=== PATIENT | male | born 1940 | race Caucasian/White ===

== ENCOUNTER 2020-01-12 11:45 | Emergency (ER) | payer MEDICARE, SELFPAY ==
[2020-01-12 11:49] VITALS: BMI 30.4
[2020-01-12 11:56] VITALS: BP 127/76; PULSE 92; RESP 18; TEMP 36.9; O2SAT 95
--- NOTE | 2020-01-12 12:01 | XRR_ITS ---
PROCEDURE INFORMATION: Exam: XR Chest, 1 View Exam date and time: 01/12/2020 12:29 PM Age: 79 years old Clinical indication: Chest pain; Type not specified; Additional info: Chest pain, back pain TECHNIQUE: Imaging protocol: XR of the chest Views: 1 view. COMPARISON: No relevant prior studies available. FINDINGS: Tubes, catheters and devices: There is a central line in place on the right side extending into the SVC Lungs: Unremarkable. No consolidation. There is a 9.7 mm circumscribed granuloma right lower lobe. A linear fibrotic density is seen in the right lower lobe. these are nonspecific findings. Pleural space: Unremarkable. No pleural effusion. No pneumothorax. Heart/Mediastinum: Unremarkable. No cardiomegaly. Bones/joints: Unremarkable. XR/XR chest 1V portable [id number] IMPRESSION: 1. No acute findings. 2. Right central line in good position. 3. Right lower lobe granuloma 4. Right lower lobe pulmonary fibrosis
--- NOTE | 2020-01-12 12:01 | ECG_ITS ---
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 Measurements Intervals [place] Rate: 87 P: 0 MD: 166 QRS: -5 QRSD: 95 T: 67 QT: 341 QTc: 411 Interpretive Statements SINUS RHYTHM NONSPECIFIC T-WAVE ABNORMALITY No previous ECG available for comparison Electronically Signed On 01-12-2020 20:32:28 CDT by Norm Shore M.D. [id number]
--- NOTE | 2020-01-12 12:03 | W.ED.GENADLT ---
HPI - General Adult General: Chief complaint: General Medical Stated complaint: rotater cuff pain Time Seen by Provider: 01/12/20 11:49 History of Present Illness: HPI narrative: This patient is a 79-year-old male presenting with right shoulder pain for several months and then intermittent chest and back pain for the last month or so. He recently moved here and does not have a physician. He says the shoulder pain started when he lifted something that was too heavy and immediately had pain in the anterior portion of his shoulder. That pain continues and is fairly constant but worsens with certain positions or movements of his arm. At times he has tingling of the fourth and fifth finger but does not think he has any weakness in the arm. He started having some pain in the left shoulder and also is having intermittent pain across his chest and across his back. He denies shortness of breath but appears dyspneic on exam. 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 He says he is in remission. His last chemotherapy was about 3 months ago. He has a port. He says he has a history of diabetes but does not take anything for it. He also has history of high blood pressure and high cholesterol. He says he has 3 crushed vertebrae in his upper neck. He denies bladder or bowel dysfunction but notes that for a long time he has had frequency where he has to urinate about every hour and it is only a small amount. No blood in the urine or stool. Onset (ago): month(s) (2) Location: chest, back, left, right and upper extremity Radiation: back and neck Severity: severe Severity scale (1-10): 10 Quality: sharp Pain Consistency: intermittent Associated symptoms: Reports chest pain; Deny dyspnea, headache(s), malaise, nausea, rash or vomiting Review of Systems General: Reports: 10 or more systems reviewed and unremarkable except in HPI and below Const: Denies: fever(s), chills, fatigue or malaise Eyes: Denies: change in vision ENMT: Denies: odynophagia Card: Reports: chest pain; Denies: swelling of feet/ankles Resp: Denies: dyspnea, productive cough or non-productive cough GI: Denies: abdominal pain, nausea or vomiting : Reports: urinary frequency; Denies: flank pain Musc: Reports: neck pain and back pain Skin/Breast: Denies: rash Neuro: Reports: numbness in extremities (Fourth and fifth finger of the right hand, intermittent); Denies: headache(s) or weakness in extremities Sukhdev/Lymph: Denies: easy bruising or easy bleeding Physical Exam Const: COMMON NORMALS: no acute distress, patient oriented x3, no limitations and alert GENERAL APPEARANCE: cooperative and well kempt HENMT: HEAD & SCALP: normal to inspection FACE & SINUS: normal facial exam Eye: GENERAL EYE: appearance normal, both eyes and all related structures Neck/C-Spine: COMMON NORMALS: no meningeal signs and no JVD CERVICAL SPINE: Yes other (No tenderness of the C-spine but marked muscle tension and spasm of the right trapezius and paraspinal muscles on the right) Chest: COMMONS NORMALS: normal inspection of the chest Resp: COMMON NORMALS: normal respiratory effort and No use of accessory muscles AUSCULTATION: diminished lung sounds on the left in the lower lung valle Cardio: COMMON NORMALS: no JVD, regular rate, regular rhythm and No murmurs present (Cardio) RATE: regular rate RHYTHM: regular rhythm GI: COMMON NORMALS: Normal to inspection, nondistended, normoactive bowel sounds present, Soft to palpation and non-tender INSPECTION: Yes normal to inspection AUSCULTATION: Yes normoactive bowel sounds PALPATION: Yes Soft to palpation Back/Pelvis: COMMON NORMALS: thoracic and lumbar spine normal to inspection Extremity: RIGHT UPPER EXTREMITY: Yes shoulder joint Right shoulder: Yes Right shoulder joint inspection exam (No obvious deformity) and Yes Right shoulder joint ROM exam (Severely limited due to pain) Neuro: COMMON NORMALS: patient oriented x3, moves all extremities, no focal motor deficits and no sensory deficits noted SENSORIUM/ORIENTATION: Yes alert MENINGEAL SIGNS: Yes no meningeal signs Psych: COMMON NORMALS: mental status grossly normal, cooperative and normal affect APPEARANCE: Yes well kempt Skin: COMMON NORMALS: no rashes or lesions noted and turgor normal GENERAL SKIN EXAM: no rashes or lesions noted and turgor normal Course ED course: Try to get prior records on this patient without success. His daughter is an ICU nurse here and is in the process of getting him set up with all the specialists he will need for follow-up. I spoke with her, with the patient's permission, about his work-up and plans for follow-up. I did not find anything acute today and his pain is probably related both to his rotator cuff injury and to bony metastases throughout his thorax. Ortho referral was given. Vital Signs: Vital signs: Vital Signs Temperature 98.4 F 01/12/20 11:56 Pulse Rate 83 01/12/20 14:30 Respiratory Rate 18 01/12/20 14:30 Blood Pressure 170/87 01/12/20 14:30 Pulse Oximetry 96 01/12/20 14:30 [facility] - General Adult Lab Data: Labs: Lab Results 01/12/20 01/12/20 01/12/20 Range/Units 12:19 12:19 12:19 WBC 13.7 H (4.0-10.0) 10^3/ uL RBC 3.63 L (4.1-5.3) 10^6/u L Hgb 9.9 L (11.7-16.6) g/dL Hct 32.2 L (42.0-52.0) % MCV 88.7 (80-94) fL MCH 27.3 L (28.0-34.0) pg MCHC 30.7 (30.0-36.0) g/dL RDW 13.4 (12.1-15.1) % Plt Count 316 (130-400) 10^3/c mm MPV 9.6 (7.4-10.4) fL Neut % (Auto) 86.7 % Lymph % (Auto) 5.8 % Guthrie % (Auto) 5.6 % Eos % (Auto) 0.5 % Baso % (Auto) 0.3 % Neut # (Auto) 11.91 H (1.8-7.7) 10^3/u L Lymph # (Auto) 0.8 (0.8-4.8) 10^3/u L Guthrie # (Auto) 0.8 (0.2-0.9) 10^3/u L Eos # (Auto) 0.1 (0.0-0.8) 10^3/u L Baso # (Auto) 0.0 (0.0-0.1) 10^3/u L Nucleated RBC % (a uto) 0 % Nucleated RBCs # 0.0 /100WBC D-Dimer 3.70 H (0-0.59) ug/mIFE U Sodium 136 (136-145) mmol/L Potassium 3.5 (3.5-5.1) mmol/L Chloride 100 (98-107) mmol/L Carbon Dioxide 23 (22-29) mmol/L Anion Gap 16.5 (5-19) BUN 41 H (8-23) mg/dL Creatinine 1.2 (0.7-1.2) mg/dL GFR Calculation Not Reportable Glucose 154 H (65-115) mg/dL Calculated Osmolal ity 283 L (285-295) mOsm/k g Calcium 9.9 (8.5-10.5) mg/dL Total Bilirubin 0.3 (0.15-1.2) mg/dL AST 24 (0-40) U/L ALT 19 (0-41) U/L Alkaline Phosphata se 315 H (40-130) IU/L Troponin T Baselin e (0-15) ng/L Troponin T 120 Min afshan (0-15) ng/L Delta Troponin T (0-10) ABS# Total Protein 7.2 (6.6-8.7) g/dL Albumin 3.6 (3.5-5.2) g/dL Globulin 3.6 (1.3-4.6) g/dL Urine Color (Yellow) Urine Appearance (CLEAR) Urine pH (5-7) Ur Specific Gravit y (1.005-1.030) Urine Protein (Negative) Urine Glucose (UA) (Normal) Urine Ketones (Negative) Urine Blood (Negative) Urine Nitrate (Negative) Urine Bilirubin (NEGATIVE) Urine Urobilinogen (Negative) mg/dL Ur Leukocyte Lucille ase (Negative) 01/12/20 01/12/20 01/12/20 Range/Units 12:19 12:33 14:16 WBC (4.0-10.0) 10^3/ uL RBC (4.1-5.3) 10^6/u L Hgb (11.7-16.6) g/dL Hct (42.0-52.0) % MCV (80-94) fL MCH (28.0-34.0) pg MCHC (30.0-36.0) g/dL RDW (12.1-15.1) % Plt Count (130-400) 10^3/c mm MPV (7.4-10.4) fL Neut % (Auto) % Lymph % (Auto) % Guthrie % (Auto) % Eos % (Auto) % Baso % (Auto) % Neut # (Auto) (1.8-7.7) 10^3/u L Lymph # (Auto) (0.8-4.8) 10^3/u L Guthrie # (Auto) (0.2-0.9) 10^3/u L Eos # (Auto) (0.0-0.8) 10^3/u L Baso # (Auto) (0.0-0.1) 10^3/u L Nucleated RBC % (a uto) % Nucleated RBCs # /100WBC D-Dimer (0-0.59) ug/mIFE U Sodium (136-145) mmol/L Potassium (3.5-5.1) mmol/L Chloride (98-107) mmol/L Carbon Dioxide (22-29) mmol/L Anion Gap (5-19) BUN (8-23) mg/dL Creatinine (0.7-1.2) mg/dL GFR Calculation Glucose (65-115) mg/dL Calculated Osmolal ity (285-295) mOsm/k g Calcium (8.5-10.5) mg/dL Total Bilirubin (0.15-1.2) mg/dL AST (0-40) U/L ALT (0-41) U/L Alkaline Phosphata se (40-130) IU/L Troponin T Baselin e 19 H (0-15) ng/L Troponin T 120 Min afshan 12.85 (0-15) ng/L Delta Troponin T -6.15 L (0-10) ABS# Total Protein (6.6-8.7) g/dL Albumin (3.5-5.2) g/dL Globulin (1.3-4.6) g/dL Urine Color Yellow (Yellow) Urine Appearance Clear (CLEAR) Urine pH 5 (5-7) Ur Specific Gravit y 1.020 (1.005-1.030) Urine Protein Neg (Negative) Urine Glucose (UA) Norm (Normal) Urine Ketones Negative (Negative) Urine Blood Neg (Negative) Urine Nitrate Negative (Negative) Urine Bilirubin Neg (NEGATIVE) Urine Urobilinogen 1 H (Negative) mg/dL Ur Leukocyte Lucille ase Negative (Negative) EKG Data^: EKG 1: EKG interpretation date: 01/12/20 EKG interpretation time: 12:12 Interpretation: EKG shows sinus rhythm with a rate of 87. Normal intervals. Normal axis. Nonspecific T wave flattening which may be artifact. No acute ischemic changes. Computer generated interpretation: Chest X-Ray 01/12/20 12:01 IMPRESSION: 1. No acute findings. 2. Right central line in good position. 3. Right lower lobe granuloma 4. Right lower lobe pulmonary fibrosis Chest/Abdomen/Pelvis CT 01/12/20 12:56 IMPRESSION: 1. Suboptimal opacification of pulmonary arteries. Centrally and through the segmental branches no pulmonary embolism. 2. 3.2 cm RIGHT hepatic lesion suspicious for metastatic disease. 3. Mixed heterogeneity throughout the ribs and multiple vertebral bodies (thoracic and lumbar) suspicious for metastatic disease. 4. Very mild thickening of the bladder wall up to 14 mm. 5. Atherosclerosis aorta. 6. Sigmoid diverticulosis without acute diverticulitis. 7. Ventral abdominal wall hernia contains a partial loop of small bowel with no obstruction. 8. No ascites or adenopathy. Discharge Plan Discharge Patient Disposition: Home Clinical Impression: Bone metastasis, Muscle spasm of right shoulder Injury of right rotator cuff Qualifiers: Encounter type: initial encounter Qualified Code(s): S46.001A - Unspecified injury of muscle(s) and tendon(s) of the rotator cuff of right shoulder, initial encounter Condition: Stable Prescriptions: New hydrocodone-acetaminophen 5-325 mg tablet 1 tab PO Q6H PRN (Reason: pain) Qty: 30 RF: 0 tizanidine 4 mg capsule 4 mg PO Q8H PRN (Reason: muscle spasticity) Qty: 30 RF: 0 No Action fenofibrate 160 mg Tablet 160 mg PO DAILY RF: 0 hydrocodone-acetaminophen 5-325 mg Tablet 1 tab PO Q6H PRN (Reason: Pain) RF: 0 lisinopril-hydrochlorothiazide 10-12.5 mg Tablet 1 tab PO DAILY RF: 0 Discharge Orders: Discharge Order (Routine); Ordered 01/12/20 Ordered By: Maryjo Craig Referrals: Gabriel Martinez MD [Physician] - 2 weeks (right rotator cuff injury) Discharge Diet: Usual diet Discharge Activity: Resume usual activity Patient Instructions: Rotator Cuff Injury (ED) Activity Restrictions/Additional Instructions: You may use a sling for comfort, but take your arm out of the sling several times a day to do gentle range of motion exercises. Use the pain medicine and muscle relaxer only as needed and use caution as both can make you sleepy. Follow up wtih your PCP about an MR and orthopedic follow up. Return to the ED if new or worse symptoms. Discharge Date/Time: 01/12/20 15:21 Coding Level of Care Code ED House Decorator for Martin Fwd Exam Comprehensive
[2020-01-12 12:25] LABS: Basophils % 0.3 %; Eosinophils # 0.1 10^3/uL (0.0-0.8); Eosinophils % 0.5 %; Hematocrit 32.2 % (42.0-52.0); Hemoglobin 9.9 g/dL (11.7-16.6); Lymphocytes # 0.8 10^3/uL (0.8-4.8); Lymphocytes % 5.8 %; Mean Corpuscular HGB Conc 30.7 g/dL (30.0-36.0); Mean Corpuscular Hemoglobin 27.3 pg (28.0-34.0); Mean Corpuscular Volume 88.7 fL (80-94); Mean Platelet Volume 9.6 fL (7.4-10.4); Monocytes # 0.8 10^3/uL (0.2-0.9); Monocytes % 5.6 %; Neutrophils # 11.91 10^3/uL (1.8-7.7); Neutrophils % 86.7 %; Nucleated Red Blood Cells % 0 %; Platelet Count 316 10^3/cmm (130-400); Red Blood Count 3.63 10^6/uL (4.1-5.3); Red Cell Distribution Width 13.4 % (12.1-15.1); White Blood Count 13.7 10^3/uL (4.0-10.0)
[2020-01-12 12:35] LABS: Add Urine Microscopic? NO
[2020-01-12 12:37] VITALS: BP 135/67; PULSE 85; O2SAT 97
[2020-01-12 12:39] LABS: Bilirubin Urine Neg (NEGATIVE); Blood Urine Neg (Negative); Glucose Urine UA Norm (Normal); Ketones Urine Negative (Negative); Leukocyte Esterase Urine Negative (Negative); Nitrate Urine Negative (Negative); Protein Urine Neg (Negative); Urine Appearance Clear (CLEAR); Urine Color Yellow (Yellow); Urobilinogen Urine 1 mg/dL (Negative); pH Urine 5 (5-7)
[2020-01-12 12:45] LABS: Alanine Aminotransferase 19 U/L (0-41); Albumin Level 3.6 g/dL (3.5-5.2); Alkaline Phosphatase 315 IU/L (40-130); Anion Gap 16.5 (5-19); Aspartate Amino Transferase 24 U/L (0-40); Blood Urea Nitrogen 41 mg/dL (8-23); Calcium 9.9 mg/dL (8.5-10.5); Carbon Dioxide 23 mmol/L (22-29); Chloride 100 mmol/L (98-107); Globulin 3.6 g/dL (1.3-4.6); Glucose 154 mg/dL (65-115); Osmolality Calculated 283 mOsm/kg (285-295); Potassium 3.5 mmol/L (3.5-5.1); Sodium 136 mmol/L (136-145); Total Bilirubin 0.3 mg/dL (0.15-1.2); Total Protein 7.2 g/dL (6.6-8.7)
--- NOTE | 2020-01-12 12:56 | CT_ITS ---
WS: [id number] CTA CHEST WITH CT ABDOMEN AND PELVIS. HISTORY: Chest and back pain with history of cancer. TECHNIQUE: CT angiogram is performed through the chest. Additional imaging is performed through the a bdomen and pelvis with IV contrast. Sagittal and coronal reformats have been submitted. MIP imaging also reviewed. All CT scans at [facility] use at least one of these dose optimization tech niques: automated exposure control; mA and/or kV adjustment per patient size (includes targeted exams where dose is matched to clinical indication); or iterative reconstruction. Contrast: Visipaque 160 cc IV. DLP: 2836.8 mGy.cm COMPARISON: None. Chest CTA: Limited opacification of the pulmonary arteries. There is significant artifact through the thorax is just probably due to patient's arms. No large central defects. Beyond the segmental branch es the opacification is limited. Heart size is slightly enlarged. No pericardial pleural effusions. A therosclerosis aorta is mild. Pulmonary artery is not enlarged. Benign granuloma RIGHT middle lobe. N o pneumonia. Subsegmental atelectasis at the lung bases. Port-A-Cath present with tip in distal SVC. Variable density throughout the bones of the thorax inclu ding the spine and ribs. There are areas of sclerosis and lucency which are highly suspicious for met astatic bone disease. Multiple areas of involvement. Abdomen CT: Ill-defined hypodense nodule in the superior liver just beneath the dome measures 3.2 cm. No edema additional masses are identified. No bile duct dilatation. Splenic granulomata. Normal gall bladder. Normal pancreas. No adrenal mass. Atherosclerosis aorta with no aneurysm. No renal obstructi on. RIGHT renal cyst measures 11 mm. No solid masses are identified. Ventral abdominal wall hernia with an orifice of 2.2 cm. There is a loop of small bowel at the orific e with no obstruction. No GI tract obstruction. The appendix is partially visualized and appears normal. Sigmoid diverticula r disease without acute diverticulitis. No abscess or free fluid. No adenopathy. Pelvic CT: Minimally distended urinary bladder. There is mild bladder wall thickening. Thickening of the bladder wall measuring up to 14 mm along the dome. No adenopathy. Heterogeneity throughout the lumbar spine suspicious for metastatic disease. L4 anterolisthesis by 7 mm. No compression fractures. CT/CT angio chest w abd pel w con IMPRESSION: 1. Suboptimal opacification of pulmonary arteries. Centrally and through the s egmental branches no pulmonary embolism. 2. 3.2 cm RIGHT hepatic lesion suspicious for metastatic disease. 3. Mixed heterogeneity throughout the ribs and multiple vertebral bodies (thor acic and lumbar) suspicious for metastatic disease. 4. Very mild thickening of the bladder wall up to 14 mm. 5. Atherosclerosis aorta. 6. Sigmoid diverticulosis without acute diverticulitis. 7. Ventral abdominal wall hernia contains a partial loop of small bowel with n o obstruction. 8. No ascites or adenopathy.
[2020-01-12 13:00] VITALS: BP 112/74; PULSE 82; O2SAT 96
[2020-01-12] MEDS: iodixanol 320 mg/mL 100mL Btl IV ×2 (13:30→13:31)
[2020-01-12] MEDS: sodium chloride 0.9% 1,000 ML 999 ML IV (13:49)
[2020-01-12 14:01] VITALS: BP 159/95; PULSE 90; O2SAT 95
--- NOTE | 2020-01-12 14:01 | ECG_ITS ---
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 Measurements Intervals [place] Rate: 95 P: 7 MI: 189 QRS: 5 QRSD: 94 T: 67 QT: 337 QTc: 424 Interpretive Statements SINUS RHYTHM NONSPECIFIC T-WAVE ABNORMALITY Compared to ECG 01/12/2020 12:11:22 No significant changes Electronically Signed On 01-12-2020 20:37:29 CDT by Norm Shore M.D. [id number]
[2020-01-12 14:21] LABS: Troponin(5th) Baseline 19 ng/L (0-15)
[2020-01-12 14:30] VITALS: BP 170/87; PULSE 83; RESP 18; O2SAT 96
[2020-01-12 14:39] LABS: Troponin 5 2HR 12.85 ng/L (0-15)
--- NOTE | 2020-01-12 14:56 | PC.NURSE ---
PRIOR TO ADM HYDROCODONE INFORMED PT THAT HE WOULD NOT BE ABLE OT DRIVE FOR 8 HOURS PT VERBALIZED UNDERSTANDING STATING THAT HE WASN'T DRIVING.
[2020-01-12] MEDS: HYDROcodone-acetaminophen 5-325 mg Tablet 1 TAB PO (14:57)
== END 2020-01-12 15:21 | disposition home or self-care (01) ==
PROVIDERS: Emergency Provider Emergency Medicine
DX: C79.51 Secondary malignant neoplasm of bone (principal); M62.838 Other muscle spasm
CPT/HCPCS: 12345; 36415; 71045; 71275; 74177; 80053; 81003; 84484; 85025; 85378; 93005; 96360; 99284; J7030; Q9967

== ENCOUNTER 2020-01-22 14:21 | Emergency (ER) | payer MEDICARE, SELFPAY ==
[2020-01-22 14:31] VITALS: BP 93/52; PULSE 76; RESP 20; TEMP 36.8; O2SAT 98; BMI 29.6
--- NOTE | 2020-01-22 14:45 | XR_ITS ---
WS: [id number] Portable AP upright chest, 01/22/2020 Clinical Data: weakness Comparison: Portable chest, 01/12/2020. Findings: No nodules, masses or effusions are seen. The heart is normal. The aortic arch and descendi ng aorta show tortuosity. The pulmonary vascularity is not increased. No pneumonia or pneumothorax is seen. The right infusion catheter remains in good position. There is a calcified granuloma in the ri ght lower lobe. There is a monitor lead on the left upper abdomen. XR/XR chest 1V portable [id number] Impression: Atherosclerosis.
--- NOTE | 2020-01-22 14:46 | ECG_ITS ---
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 Measurements Intervals [place] Rate: 81 P: -7 CT: 172 QRS: -7 QRSD: 93 T: 47 QT: 361 QTc: 421 Interpretive Statements SINUS RHYTHM NONSPECIFIC T-WAVE ABNORMALITY Compared to ECG 01/12/2020 13:56:46 No significant changes Electronically Signed On 01-22-2020 20:13:59 CDT by Emily Yusuf M.D. [email or web address] [id number]
--- NOTE | 2020-01-22 14:48 | W.ED.EXTPRO ---
HPI - Extremity Problem General: Chief complaint: Weakness Stated complaint: weakness Time Seen by Provider: 01/22/20 14:33 Source: patient Mode of arrival: ambulatory Limitations: no limitations History of Present Illness: HPI Narrative: Mr. Sanchez is a 79-year-old male has a past history of cancer he went through treatment he does not have follow-up since. Patient was seen here 1 week ago for shoulder strain. Patient was prescribed [place] and tizanidine. Patient has had generalized weakness since then. He states he has had low blood pressures as well. He states he took both meds today at noon and felt very weak. He is hypotensive. Denies any fever. Associated symptoms: Deny chest pain, fever(s) or rash Review of Systems Const: Denies: fever(s), chills, body aches or change in appetite Eyes: Denies: blurry vision or eye discomfort ENMT: Denies: throat pain or dental pain Card: Denies: chest pain Resp: Denies: dyspnea GI: Denies: abdominal pain, nausea, vomiting or diarrhea : Denies: dysuria Musc: Reports: muscle weakness Skin/Breast: Denies: rash Neuro: Denies: headache(s) Psych: Denies: depression Sukhdev/Lymph: Denies: easy bruising All/Imm: Denies: urticaria Physical Exam Const: COMMON NORMALS: no acute distress, patient oriented x3 and healthy appearing HENMT: COMMON NORMALS: normocephalic and atraumatic HEAD & SCALP: normocephalic and atraumatic Eye: COMMON NORMALS: Equal, round and reactive pupils present and EOMs intact bilaterally PUPIL: Yes Equal, round and reactive pupils present Neck/C-Spine: COMMON NORMALS: full ROM and supple Chest: COMMONS NORMALS: normal inspection of the chest and normal palpation of entire chest wall Resp: COMMON NORMALS: normal respiratory effort, No retractions, No use of accessory muscles and clear to auscultation bilaterally AUSCULTATION: clear to auscultation bilaterally Cardio: COMMON NORMALS: regular rate, regular rhythm and No murmurs present (Cardio) RATE: regular rate RHYTHM: regular rhythm GI: COMMON NORMALS: Normal to inspection, nondistended, normoactive bowel sounds present, Soft to palpation, non-tender and no masses PALPATION: Yes Soft to palpation Extremity: COMMON NORMALS: normal to inspection and full ROM Neuro: COMMON NORMALS: patient oriented x3, moves all extremities and no focal motor deficits Psych: COMMON NORMALS: mental status grossly normal, Normal thought process present and cooperative THOUGHT PROCESS: Normal thought process present Skin: COMMON NORMALS: no rashes or lesions noted and no wounds GENERAL SKIN EXAM: no rashes or lesions noted Course Vital Signs: Vital signs: Vital Signs Temperature 98.2 F 01/22/20 14:31 Pulse Rate 78 01/22/20 16:59 Respiratory Rate 15 01/22/20 16:59 Blood Pressure 124/59 01/22/20 16:59 Pulse Oximetry 94 01/22/20 16:59 MDM - Extremity (Nontraumatic) MDM Narrative: Medical decision making narrative: Patient presents here with generalized weakness and initially hypotension likely due to his Zanaflex. Patient feels much improved here after IV fluid bolus his blood pressure is now 134/64. He has no signs of acute infection. He does have a slight leukocytosis informed he needs to follow-up with PCP to have that rechecked. Patient is to return if worsening. Lab Data: Labs: Lab Results 01/22/20 01/22/20 01/22/20 Range/Units 15:15 15:15 15:15 WBC 16.1 H (4.0-10.0) 10^3/ uL RBC 3.33 L (4.1-5.3) 10^6/u L Hgb 9.1 L (11.7-16.6) g/dL Hct 27.9 L (42.0-52.0) % MCV 83.8 (80-94) fL MCH 27.3 L (28.0-34.0) pg MCHC 32.6 (30.0-36.0) g/dL RDW 13.4 (12.1-15.1) % Plt Count 308 (130-400) 10^3/c mm MPV 9.7 (7.4-10.4) fL Neut % (Auto) 87.2 % Lymph % (Auto) 5.0 % Winkler % (Auto) 5.6 % Eos % (Auto) 0.2 % Baso % (Auto) 0.2 % Neut # (Auto) 14.06 H (1.8-7.7) 10^3/u L Lymph # (Auto) 0.8 (0.8-4.8) 10^3/u L Winkler # (Auto) 0.9 (0.2-0.9) 10^3/u L Eos # (Auto) 0.0 (0.0-0.8) 10^3/u L Baso # (Auto) 0.0 (0.0-0.1) 10^3/u L Nucleated RBC % (a uto) 0 % Nucleated RBCs # 0.0 /100WBC Sodium 136 (136-145) mmol/L Potassium 3.7 (3.5-5.1) mmol/L Chloride 98 (98-107) mmol/L Carbon Dioxide 25 (22-29) mmol/L Anion Gap 16.7 (5-19) BUN 43 H (8-23) mg/dL Creatinine 1.9 H (0.7-1.2) mg/dL GFR Calculation Not Reportable Glucose 170 H (65-115) mg/dL Calculated Osmolal ity 284 L (285-295) mOsm/k g Lactate 1.9 (0.5-2.2) mmol/L Calcium 10.1 (8.5-10.5) mg/dL Magnesium 1.6 L (1.7-2.3) mg/dL Total Bilirubin 0.4 (0.15-1.2) mg/dL AST 24 (0-40) U/L ALT 17 (0-41) U/L Alkaline Phosphata se 335 H (40-130) IU/L Total Protein 6.9 (6.6-8.7) g/dL Albumin 3.6 (3.5-5.2) g/dL Globulin 3.3 (1.3-4.6) g/dL Urine Color (Yellow) Urine Appearance (CLEAR) Urine pH (5-7) Ur Specific Gravit y (1.005-1.030) Urine Protein (Negative) Urine Glucose (UA) (Normal) Urine Ketones (Negative) Urine Blood (Negative) Urine Nitrate (Negative) Urine Bilirubin (NEGATIVE) Urine Urobilinogen (Negative) mg/dL Ur Leukocyte Lucille ase (Negative) Urine RBC (0-2) /hpf Urine WBC (0-5) /hpf Ur Squamous Epith Cells (0-5) Amorphous Sediment Urine Bacteria (NONE) Urine Mucus 08/13/20 Range/Units 16:01 WBC (4.0-10.0) 10^3/ uL RBC (4.1-5.3) 10^6/u L Hgb (11.7-16.6) g/dL Hct (42.0-52.0) % MCV (80-94) fL MCH (28.0-34.0) pg MCHC (30.0-36.0) g/dL RDW (12.1-15.1) % Plt Count (130-400) 10^3/c mm MPV (7.4-10.4) fL Neut % (Auto) % Lymph % (Auto) % Winkler % (Auto) % Eos % (Auto) % Baso % (Auto) % Neut # (Auto) (1.8-7.7) 10^3/u L Lymph # (Auto) (0.8-4.8) 10^3/u L Winkler # (Auto) (0.2-0.9) 10^3/u L Eos # (Auto) (0.0-0.8) 10^3/u L Baso # (Auto) (0.0-0.1) 10^3/u L Nucleated RBC % (a uto) % Nucleated RBCs # /100WBC Sodium (136-145) mmol/L Potassium (3.5-5.1) mmol/L Chloride (98-107) mmol/L Carbon Dioxide (22-29) mmol/L Anion Gap (5-19) BUN (8-23) mg/dL Creatinine (0.7-1.2) mg/dL GFR Calculation Glucose (65-115) mg/dL Calculated Osmolal ity (285-295) mOsm/k g Lactate (0.5-2.2) mmol/L Calcium (8.5-10.5) mg/dL Magnesium (1.7-2.3) mg/dL Total Bilirubin (0.15-1.2) mg/dL AST (0-40) U/L ALT (0-41) U/L Alkaline Phosphata se (40-130) IU/L Total Protein (6.6-8.7) g/dL Albumin (3.5-5.2) g/dL Globulin (1.3-4.6) g/dL Urine Color Yellow (Yellow) Urine Appearance Sl hazy (CLEAR) Urine pH 5.0 (5-7) Ur Specific Gravit y 1.020 (1.005-1.030) Urine Protein 1+ H (Negative) Urine Glucose (UA) Norm (Normal) Urine Ketones 1+ H (Negative) Urine Blood 2+ H (Negative) Urine Nitrate Negative (Negative) Urine Bilirubin Neg (NEGATIVE) Urine Urobilinogen 1 H (Negative) mg/dL Ur Leukocyte Lucille ase 2+ H (Negative) Urine RBC 10-15 H (0-2) /hpf Urine WBC 55-80 H (0-5) /hpf Ur Squamous Epith Cells 5-10 H (0-5) Amorphous Sediment Not Reportable Urine Bacteria 1+ H (NONE) Urine Mucus 1+ Imaging Data^: CXR: Attestation: I personally reviewed and interpreted this imaging study as follows: Radiologist's impression: [place] [address] XRay Report Signed Patient: Hector Sanchez V Unit #: [id number] : 1940 Age/Sex: 79 / M ADM Date: 01/22/20 Loc: ER Room/Bed: Attending Dr: Ordering Provider/Ordering MD: Milton Serna MD Date of Service: 01/22/20 Procedure(s): XR chest 1V portable [id number] Accession Number(s): [id number] Report Number: [id number] WS: [id number] Portable AP upright chest, 01/22/2020 Clinical Data: weakness Comparison: Portable chest, 01/12/2020. Findings: No nodules, masses or effusions are seen. The heart is normal. The aortic arch and descending aorta show tortuosity. The pulmonary vascularity is not increased. No pneumonia or pneumothorax is seen. The right infusion catheter remains in good position. There is a calcified granuloma in the right lower lobe. There is a monitor lead on the left upper abdomen. XR/XR chest 1V portable [id number] Impression: Atherosclerosis. EKG Data^: EKG 1: Attestation: I personally reviewed and interpreted this EKG as follows: EKG interpretation date: 01/22/20 EKG interpretation time: 15:02 Interpretation: nsr hr [address] or wave abnormalities qrs 93 qtc 399 Discharge Plan Discharge Patient Disposition: Home Clinical Impression: Weakness Condition: Stable Prescriptions: [place] 5-325 mg tablet 1 tab PO Q6H PRN (Reason: pain) Qty: 14 RF: 0 No Action fenofibrate 160 mg Tablet 160 mg PO DAILY RF: 0 lisinopril-hydrochlorothiazide 10-12.5 mg Tablet 1 tab PO DAILY RF: 0 hydrocodone-acetaminophen 5-325 mg tablet 1 tab PO Q6H PRN (Reason: pain) Qty: 30 RF: 0 tizanidine 4 mg capsule 4 mg PO Q8H PRN (Reason: muscle spasticity) Qty: 30 RF: 0 Vitamin B-12 1,000 mcg Tablet 1,000 mcg PO DAILY RF: 0 Super B Complex-Vitamin C Tablet 1 tab PO BID RF: 0 Vitamin C With Kimberly Hips 1,000 mg Tablet 1,000 mg PO BID RF: 0 Glucosamine-MSM Complex Tablet 1 tab PO BEDTIME RF: 0 naproxen sodium 220 mg Capsule 220 mg PO BID RF: 0 krill oil 500 mg Capsule 500 mg PO BEDTIME RF: 0 Discharge Orders: Discharge Order (Routine); Ordered 01/22/20 Ordered By: Milton Serna Referrals: CHELSEY SAUCEDA DO [Primary Care Provider] - 1-3 days Discharge Diet: Advance as tolerated Discharge Activity: Resume usual activity Patient Instructions: Weakness (ED) Coding Level of Care Code ED [facility] Keeper for [facility] Fwd Exam Comprehensive
[2020-01-22 14:54] VITALS: BP 89/57; PULSE 82; RESP 19; O2SAT 98
[2020-01-22] MEDS: sodium chloride 0.9% 1,000 ML 999 ML IV (15:17)
[2020-01-22 15:34] LABS: Basophils % 0.2 %; Eosinophils % 0.2 %; Hematocrit 27.9 % (42.0-52.0); Hemoglobin 9.1 g/dL (11.7-16.6); Lymphocytes # 0.8 10^3/uL (0.8-4.8); Mean Corpuscular HGB Conc 32.6 g/dL (30.0-36.0); Mean Corpuscular Hemoglobin 27.3 pg (28.0-34.0); Mean Corpuscular Volume 83.8 fL (80-94); Mean Platelet Volume 9.7 fL (7.4-10.4); Monocytes # 0.9 10^3/uL (0.2-0.9); Monocytes % 5.6 %; Neutrophils # 14.06 10^3/uL (1.8-7.7); Neutrophils % 87.2 %; Nucleated Red Blood Cells % 0 %; Platelet Count 308 10^3/cmm (130-400); Red Blood Count 3.33 10^6/uL (4.1-5.3); Red Cell Distribution Width 13.4 % (12.1-15.1); White Blood Count 16.1 10^3/uL (4.0-10.0)
[2020-01-22 15:50] LABS: Lactate (Lactic Acid level) 1.9 mmol/L (0.5-2.2)
[2020-01-22 15:52] LABS: Albumin Level 3.6 g/dL (3.5-5.2); Alkaline Phosphatase 335 IU/L (40-130); Anion Gap 16.7 (5-19); Aspartate Amino Transferase 24 U/L (0-40); Blood Urea Nitrogen 43 mg/dL (8-23); Calcium 10.1 mg/dL (8.5-10.5); Carbon Dioxide 25 mmol/L (22-29); Chloride 98 mmol/L (98-107); Globulin 3.3 g/dL (1.3-4.6); Glucose 170 mg/dL (65-115); Magnesium 1.6 mg/dL (1.7-2.3); Osmolality Calculated 284 mOsm/kg (285-295); Potassium 3.7 mmol/L (3.5-5.1); Sodium 136 mmol/L (136-145); Total Bilirubin 0.4 mg/dL (0.15-1.2); Total Protein 6.9 g/dL (6.6-8.7)
[2020-01-22 16:02] LABS: Alanine Aminotransferase 17 U/L (0-41)
[2020-01-22 16:04] VITALS: BP 86/50; PULSE 86; RESP 29; O2SAT 94
[2020-01-22 16:26] LABS: Add Urine Microscopic? YES; Bilirubin Urine Neg (NEGATIVE); Blood Urine 2+ (Negative); Glucose Urine UA Norm (Normal); Ketones Urine 1+ (Negative); Leukocyte Esterase Urine 2+ (Negative); Nitrate Urine Negative (Negative); Protein Urine 1+ (Negative); Urine Appearance SL Hazy (CLEAR); Urine Color Yellow (Yellow); Urobilinogen Urine 1 mg/dL (Negative)
[2020-01-22 16:36] LABS: Add Urine Culture? Yes; Bacteria Urine 1+; Mucus Urine 1+; WBC Urine 55-80 /hpf (0-5)
[2020-01-22 16:51] VITALS: BP 124/59; PULSE 78; RESP 14; O2SAT 93
[2020-01-22 16:59] VITALS: BP 124/59; PULSE 78; RESP 15; O2SAT 94
[2020-01-22 17:41] VITALS: BP 149/71; PULSE 86; RESP 18; O2SAT 96
--- NOTE | 2020-01-23 09:12 | DCPLANNER ---
Addendum entered by Kimber Pierre 01/29/20 10:38: Precious from oncology called case operator and informed case operator that she spoke with patient. manager decision support was told that patient wants to start services [place] [facility], is having paperwork and medical records sent to clinic. After records are received and reviewed patient will be scheduled at clinic. Original Note: manager decision support had message to make a referral for patient to oncology. manager decision support called Precious, social services coordinator for oncology, gave her patients information. manager decision support was told that Precious would contact patient, and let case operator know if case operator needed to do anything else for patient.
== END 2020-01-22 17:41 | disposition home or self-care (01) ==
PROVIDERS: Emergency Provider Emergency Medicine; PCP Internal Medicine
DX: R53.1 Weakness (principal)
CPT/HCPCS: 12345; 71045; 80053; 81001; 83605; 83735; 85025; 87040; 87086; 93005; 96360; 96361; 99283; 99284; J7030

== ENCOUNTER → 2020-01-28 15:44 | Outpatient (BNVA) | payer MEDICARE, SELFPAY | PROVIDERS: PCP Internal Medicine; Referring Provider Emergency Medicine; Visit Provider Specialist | DX: M25.511 Pain in right shoulder (principal); M19.011 Primary osteoarthritis, right shoulder | CPT/HCPCS: 73030 ==

== ENCOUNTER 2020-02-09 13:52 | Outpatient (CLI) | payer OTHER, SELFPAY ==
[2020-02-09 15:21] VITALS: RESP 16
[2020-02-09] MEDS: morphine 4 mg/mL SDV 1 mL 2 MG IV ×2 (15:21→15:41)
[2020-02-09 15:41] VITALS: RESP 16
--- NOTE | 2020-02-09 17:40 | ONC CON_ITS ---
Dr. Brewer New Patient Note Patient: Hector Sanchez V Unit #: [id number]: 1940 Dicatated By: Ciaran Brewer M.D.Date of Visit: Feb 09, 2020 Onc MED New Patient/Consult Referring Physician: Jl Diez M.D. Chief Complaint: Urothelial cancer. History of Present Illness: This is a 79 year-old man with metastatic urothelial cancer. He was found to have an abnormal CT urogram in January 2019 after presenting with hematuria. His TURBT on 02/27/2019 showed multifocal bladder masses, including right lateral wall and bladder neck lesions. Pathology from resection of the bladder neck revealed high-grade urothelial carcinoma with invasion into the lamina propria. There was no muscle invasion identified. However, his staging PET/CT on 03/20/2019 showed evidence of widespread metastatic malignancy involving lymph nodes, bone, and liver. An ultrasound directed needle biopsy of a left supraclavicular lymph node confirmed metastatic urothelial carcinoma. A next generation sequencing study by [employer] confirm presence of a TP53 mutation, but there were no actionable mutations identified. The tumor showed intact mismatch repair proteins. The PD-L1 expression showed a combined positive score > 10%. Between March 2019 and July 2019 he received 4 cycles of chemotherapy with gemcitabine and carboplatin. By his account, he tolerated the chemotherapy very well. A restaging PET/CT on 05/12/2019 had shown significant overall improvement in the extensive skeletal metastatic disease, marked improvement in metastatic lymphadenopathy, and almost complete resolution of numerous hepatic metastases. He had opted to remain on close observation following completion of the chemotherapy. As of his follow-up visit on 10/29/2019 he appeared stable clinically with no obvious disease progression. Subsequent to that visit he had moved to [place] to be with his daughter. He has since then had a dramatic decline in his general condition. On 01/12/2020 he was seen in the emergency room with complaint of right shoulder pain. He also reported having pain intermittently in his chest and back. A CT angiogram of the chest with abdomen/pelvis CT showed no obvious pulmonary embolism, but with suboptimal opacification of pulmonary arteries. A 3.2 cm right hepatic lesion was suspicious for metastatic disease. Next heterogeneity throughout the ribs and multiple vertebral bodies was felt to be suspicious for metastatic disease. There was no adenopathy reported in the chest, abdomen, or pelvis. At that time he was moderately anemic with hemoglobin 9.9 g. Renal function remained adequate with BUN 41 and creatinine 1.2 mg/dL. His alkaline phosphatase was significantly elevated at 315/130 IU/L. His pain continued to worsen, and he was seen in the emergency room again on 01/22/2020. At that point there had been a significant decline in his renal function with his creatinine increased to 1.9 mg/dL. Thereafter his condition continued to worsen to the point that he enrolled into hospice. He complains that he has pain all over his body, but particularly in the right shoulder. He describes having muscle pain in his biceps and cartilage pain in his knees. He is having severe back pain. At this point he has virtually no activity. His ECOG score is 3. He says his appetite is gone and his weight is down 25 pounds. He has no fever or night sweats. He does not complain of shortness of breath or cough. He sometimes has pain in his chest with deep breaths. He has not been having nausea or acid reflux. He has constipation, but that does seem to be getting better with a stool softener and Dulcolax. He has frequent urination, and he has having difficulty getting up to void. He does not complain of headache. He has having some lightheadedness and he also reports having some numbness in his right hand. He has significant depression. Past Medical History: His medical history includes chronic kidney disease, hyperlipidemia, hypertension, and type 2 diabetes, diet controlled. Past Surgical History: His surgical/procedural history includes bilateral cataract excisions, cystoscopy, deviated septum repair, placement of Port-A-Cath venous access device, and TURBT. Medications: Decadron 1 Tablet (of 4 mg) Oral daily, Fenofibrate 1 Tablet (of 160 mg) Oral at bedtime, HYDROcodone-Acetaminophen 1 Tablet (of 5-325 mg) Oral q 6 hours Allergies: tetnus Social History: Mr. Sanchez is . 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 He had smoked in the past, up to 4 packs of cigarettes per day. He quit smoking 25 years ago. He does not drink alcohol. He has had alcohol use in the past, but never heavy. Family History: Father of heart attack. His mother had breast cancer but of old age. A brother and a sister are in good health. Review Of Symptoms: Constitutional - He is not doing much. He has significant restrictions related to pain and is mainly sedentary. His appetite is non-existent and his weight is down 25 pounds. No fever, night sweats, or hot flashes. ECOG score is 3, Eyes - Denies blurred vision, double vision, lacrimation, night blindness, visual difficulties and photophobia. He's had cataract surgery, ENMT - He has chronic sinus congestion/drainage. No mouth sores. No sore throat or difficulty swallowing, Hematologic/Lymphatic - No abnormal bruising or bleeding, Respiratory - No shortness of breath. No cough. No pleuritic pain or hemoptysis, Cardiovascular - No angina pain. No palpitations, Gastrointestinal - No nausea or vomiting. No heartburn or acid reflux. No diarrhea. He has constipation. He is taking a stool softner. No blood in the stool or black stools, Genitourinary (M) - No dysuria or hematuria. He has urinary frequency both day and night. No urgency or incontinence, Musculoskeletal - He has significant generalized joint and muscle pain. This first occurred 2 months ago. He is taking Hydrocodone-APAP 5-325 mg, Integumentary - No skin complications, Neurologic - No headache. He has dizziness. He has numbness in his right ring and little finger. No other focal neurologic symptoms, Psychiatric - No anxiety. He has depression. He does not sleep well. Vital Signs: Performed on Feb 09, 2020 14:47: 10, 25.97, 1.91 sq.m, 68.00 in, 97 %, 91 /min, 24 /min, 117/59 mm(hg), 97.2 F (LOW), and 170.8 lbs (HIGH). Physical Examination: Constitutional - He appears very weak generally, and he is in significant discomfort, Eyes - Sclerae nonicteric. Conjunctivae clear, ENMT - No lesions noted in the oral cavity, Hematologic/Lymphatic - No cervical, clavicular, or axillary adenopathy, Respiratory - Lungs sound clear. He has prett good air movement bilaterally, Cardiovascular - Heart rhythm is regular. There is no murmur, gallop, or rub noted, Abdomen - Soft. Liver and spleen are not enlarged. There is no abdominal mass or ascites noted and there is no inguinal adenopathy, Back/Spine - No significant bony tenderness in the spine or ribs, Extremities - There is 1 to 2+ lower extremity edema. , Integumentary - No rashes. No suspicious skin lesions noted, Neurologic - No focal neurologic deficits noted. Impression: 1. Patient with high-grade urothelial carcinoma, stage IVB, with PET/CT evidence of lymph node, liver, and extensive bone involvement at initial diagnosis. 2. He underwent TURBT on 02/27/2019 and he underwent ultrasound directed biopsy of a left supraclavicular lymph node on 03/26/2019. His next generation sequencing showed no actionable mutations. His tumor showed intact mismatch repair proteins. The P-L1 expression showed a combined positive score > 10%. 3. He received 4 cycles of palliative chemotherapy with gemcitabine and carboplatin between March 2019 and July 2019. He tolerated the chemotherapy very well, and he had an excellent response by restaging PET/CT in May 2019. His other medical illnesses include: 4. Hypertension. 5. Hyperlipidemia. 6. Type 2 diabetes, diet-controlled. As of his follow-up visit in October 2019 he appeared stable clinically with no obvious disease progression. Over the past month he has developed generalized bone pain and he also has had a significant decline in his performance status, consistent with disease progression. His CT scans from 01/12/2020 did show evidence of a metastatic lesion in the liver as well as multiple sites of bony metastatic disease. His overall condition now is very poor. Plan: I reviewed the CT and laboratory findings, and we discussed the fact that his disease is undoubtedly progressing. In his present condition, the likelihood of benefit with further chemotherapy will be very low, but he still may be eligible for trial of immunotherapy with pembrolizumab. To that end I will recheck his baseline laboratory studies including CBC, comprehensive metabolic profile, thyroid profile, serum iron studies, and B12 level. He is being given subcutaneous morphine here in the office as he is in significant discomfort. I will have him start extended release morphine 15 mg every 12 hours, and that dosage can be escalated as necessary. For now he will continue the hydrocodone/APAP for breakthrough pain. He will start a bowel regimen with senna/docusate. I also will have him start citalopram 20 mg daily for depression. I will try and arrange for restaging PET/CT this week, but I do plan to start treatment as soon as we have verified insurance coverage. He is aware that he will need to revoke his hospice benefit. Signed By: Ciaran Brewer M.D. <<Signature on File>>
[2020-02-09 21:09] LABS: Basophils # 0.1 10^3/uL (0.0-0.1); Basophils % 0.3 %; Hematocrit 32.9 % (42.0-52.0); Hemoglobin 10.1 g/dL (11.7-16.6); Lymphocytes # 0.9 10^3/uL (0.8-4.8); Lymphocytes % 4.3 %; Mean Corpuscular HGB Conc 30.7 g/dL (30.0-36.0); Mean Corpuscular Hemoglobin 26.5 pg (28.0-34.0); Mean Corpuscular Volume 86.4 fL (80-94); Mean Platelet Volume 10.4 fL (7.4-10.4); Monocytes # 0.7 10^3/uL (0.2-0.9); Monocytes % 3.3 %; Neutrophils # 17.85 10^3/uL (1.8-7.7); Neutrophils % 86.5 %; Nucleated Red Blood Cells # 0.1 /100WBC; Nucleated Red Blood Cells % 0.3 %; Platelet Count 335 10^3/cmm (130-400); Red Blood Count 3.81 10^6/uL (4.1-5.3); Red Cell Distribution Width 14.7 % (12.1-15.1); White Blood Count 20.7 10^3/uL (4.0-10.0)
[2020-02-09 21:32] LABS: Alanine Aminotransferase 22 U/L (0-41); Albumin Level 3.4 g/dL (3.5-5.2); Alkaline Phosphatase 502 IU/L (40-130); Anion Gap 21.7 (5-19); Aspartate Amino Transferase 25 U/L (0-40); Calcium 9.9 mg/dL (8.5-10.5); Carbon Dioxide 27 mmol/L (22-29); Chloride 94 mmol/L (98-107); Free T4 Free Thyroxine 1.44 ng/dL (0.82-1.77); Globulin 3.9 g/dL (1.3-4.6); Glucose 167 mg/dL (65-115); Osmolality Calculated 292 mOsm/kg (285-295); Potassium 3.7 mmol/L (3.5-5.1); Sodium 139 mmol/L (136-145); Thyroid Stimulating Hormone 1.89 uIU/mL (0.27-4.20); Total Bilirubin 0.4 mg/dL (0.15-1.2); Total Protein 7.3 g/dL (6.6-8.7)
[2020-02-09 21:49] LABS: Blood Urea Nitrogen 83 mg/dL (8-23)
[2020-02-10 00:41] LABS: Iron 64 ug/dL (59-158); Percent Saturation 36.7 % (20-50); Total Iron Binding Capacity 174 mcg/dl; Unsaturated Iron Binding 110 ug/dL (112-347)
[2020-02-10 00:53] LABS: Ferritin 3629 ng/mL (30-400)
[2020-02-10 01:50] LABS: Slide Review Slide Review Perform
[2020-02-10 02:22] LABS: Vitamin B12 1669 pg/mL (232-1245)
== END 2020-02-09 13:53 | disposition home or self-care (01) ==
PROVIDERS: PCP Internal Medicine; Visit Provider Internal Medicine Medical Oncology
DX: C67.8 Malignant neoplasm of overlapping sites of bladder (principal); C79.51 Secondary malignant neoplasm of bone; C78.7 Secondary malignant neoplasm of liver and intrahepatic bile duct; C77.0 Secondary and unspecified malignant neoplasm of lymph nodes of head, face and neck; I10 Essential (primary) hypertension; E78.5 Hyperlipidemia, unspecified; E11.9 Type 2 diabetes mellitus without complications; F32.9 Major depressive disorder, single episode, unspecified; Z87.891 Personal history of nicotine dependence; Z79.899 Other long term (current) drug therapy; Z79.891 Long term (current) use of opiate analgesic
CPT/HCPCS: 80053; 82607; 82728; 83540; 83550; 84439; 84443; 85025; 96372; 99205; J2270

== ENCOUNTER 2020-02-13 05:59 | Outpatient (RCR) | payer MEDICARE, SELFPAY ==
[2020-02-11] MEDS: sodium chloride 0.9% 500 ML 999 ML IV (15:23)
[2020-02-12] MEDS: sodium chloride 0.9% 500 ML 999 ML IV (15:05)
== END 2020-02-14 20:00 | disposition home or self-care (01) ==
LOC: ONCMED 05:59
PROVIDERS: PCP Internal Medicine; Visit Provider Internal Medicine Hematology & Oncology
DX: Z51.12 Encounter for antineoplastic immunotherapy (principal); C67.8 Malignant neoplasm of overlapping sites of bladder; C79.51 Secondary malignant neoplasm of bone
CPT/HCPCS: 96360; 96361; 96413; J7040; J7050; J9271

== ENCOUNTER 2020-02-14 20:50 | Inpatient (IN) | payer MEDICARE, SELFPAY ==
[2020-02-14 21:02] VITALS: BP 76/37; PULSE 102; RESP 18; TEMP 36.6; O2SAT 96; BMI 24.3
--- NOTE | 2020-02-14 21:19 | CTR_ITS ---
PROCEDURE INFORMATION: Exam: CT Head Without Contrast Exam date and time: 02/14/2020 9:21 PM Age: 79 years old Clinical indication: Injury or trauma; Initial encounter; Blunt trauma (contusions or hematomas); Consciousness not specified; Patient HX: HX of bladder CA w mets C/O weakness and 2 x falls today; Additional info: AMS TECHNIQUE: Imaging protocol: Computed tomography of the head without contrast. Radiation optimization: All CT scans at this facility use at least one of these dose optimization techniques: automated exposure control; mA and/or kV adjustment per patient size (includes targeted exams where dose is matched to clinical indication); or iterative reconstruction. COMPARISON: No relevant prior studies available. RADIATION DOSE METRICS: Total DLP (mGy-cm): 1465.05 FINDINGS: Brain: No visible evidence of acute intracranial pathologic process, trauma, or hemorrhage. Unremarkable white matter. No mass effect. No visible generalized edema. Age-appropriate findings. Ventricles: No ventriculomegaly. Bones/joints: Unremarkable. No acute fracture. Sinuses: Visualized sinuses are unremarkable. No fluid levels. Mastoid air cells: Visualized mastoid air cells are well aerated. Soft tissues: Unremarkable. CT/CT head wo con* [id number] IMPRESSION: No acute intracranial abnormality. Radiation Dose CTDIVOL = (mGy): DLP = 1465.05 (mGy-cm)
--- NOTE | 2020-02-14 21:19 | XRR_ITS ---
PROCEDURE INFORMATION: Exam: XR Chest, 1 View Exam date and time: 02/14/2020 9:51 PM Age: 79 years old Clinical indication: Other: Weakness; Prior surgery; Surgery date: 1-6 months; Surgery type: Port TECHNIQUE: Imaging protocol: XR of the chest Views: 1 view. COMPARISON: CR XR chest 1V portable [id number] 01/22/2020 3:31 PM FINDINGS: Tubes, catheters and devices: Right-sided Port-A-Cath. Lungs: Right lower lobe calcified granuloma. Pleural space: Unremarkable. No pleural effusion. No pneumothorax. Heart/Mediastinum: Cardiomegaly. Bones/joints: Unremarkable. XR/XR chest 1V portable [id number] IMPRESSION: 1. Negative for infiltrate 2. Cardiomegaly. 3. Right lower lobe calcified granuloma.
--- NOTE | 2020-02-14 21:21 | ECG_ITS ---
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 Measurements Intervals [place] Rate: 92 P: 12 WY: 141 QRS: 12 QRSD: 96 T: 50 QT: 351 QTc: 436 Interpretive Statements SINUS RHYTHM Compared to ECG 01/22/2020 15:02:11 T-wave abnormality no longer present Electronically Signed On 02-16-2020 7:59:20 CDT by Emily Yusuf M.D. [id number]
[2020-02-14 21:26] VITALS: O2SAT 92
[2020-02-14 21:27] LABS: Glucose Point of Care 199 mg/dL (70-110)
[2020-02-14 21:29] LABS: Hematocrit 31.6 % (42.0-52.0); Hemoglobin 9.9 g/dL (11.7-16.6); Mean Corpuscular HGB Conc 31.3 g/dL (30.0-36.0); Mean Corpuscular Hemoglobin 26.3 pg (28.0-34.0); Mean Corpuscular Volume 83.8 fL (80-94); Mean Platelet Volume 10.8 fL (7.4-10.4); Platelet Count 249 10^3/cmm (130-400); Red Blood Count 3.77 10^6/uL (4.1-5.3); Red Cell Distribution Width 15.1 % (12.1-15.1); White Blood Count 9.5 10^3/uL (4.0-10.0)
[2020-02-14] MEDS: sodium chloride 0.9% 1,000 ML 999 ML IV (21:38)
[2020-02-14 21:39] LABS: INR 1.11 (0.8-1.2)
[2020-02-14 21:46] LABS: Alanine Aminotransferase 43 U/L (0-41); Albumin Level 3.1 g/dL (3.5-5.2); Alkaline Phosphatase 427 IU/L (40-130); Anion Gap 28.5 (5-19); Aspartate Amino Transferase 57 U/L (0-40); C Reactive Protein 315.2 mg/L (0.0-4.9); Calcium 8.4 mg/dL (8.5-10.5); Carbon Dioxide 18 mmol/L (22-29); Chloride 92 mmol/L (98-107); Globulin 2.6 g/dL (1.3-4.6); Glucose 175 mg/dL (65-115); Potassium 5.5 mmol/L (3.5-5.1); Sodium 133 mmol/L (136-145); Total Bilirubin 1.2 mg/dL (0.15-1.2); Total Protein 5.7 g/dL (6.6-8.7)
[2020-02-14 21:48] LABS: Troponin(5th) Baseline 41 ng/L (0-15)
[2020-02-14 21:49] LABS: Lactate (Lactic Acid level) 4.3 mmol/L (0.5-2.2)
[2020-02-14 21:52] LABS: ABG PH Result 7.56 (7.35-7.45); Arterial Blood Gas Hematocrit 28.5 % (42-52); Blood Gas Allen Test Pos; Blood Gas Sample Site Radial, right; Blood Gas Sample Type Arterial; HCO3 ABG 16.9 mmol/L (22-26); Oxygen Device NC
[2020-02-14 21:53] LABS: ABG PCO2 18.8 mmHg (35-45)
[2020-02-14 21:54] LABS: Osmolality Calculated 283 mOsm/kg (285-295)
[2020-02-14 21:56] LABS: Blood Urea Nitrogen 137 mg/dL (8-23); Creatine Phosphokinase 545 U/L (39-308)
[2020-02-14 22:10] LABS: Slide Review Slide Review Perform
[2020-02-14 22:15] LABS: Absolute Neutrophil 7.6 10^3/cmm (1.4-6.5); Absolute Segmented Neutrophil 4.8 10/cmm (1.6-7.1); Band Neutrophils Absolute 2.9 10^3/cmm (0.0-1.2); Lymphocytes 8 %; Monocytes Absolute 0.6 10^3/cmm (0.1-0.6); Platelet Estimate Normal (Normal); Segmented Neutrophils 50 %; Total Cells Counted 100 (0-100)
[2020-02-14 22:16] LABS: Polychromasia Trace
[2020-02-14 22:17] LABS: Poikilocytosis Trace
--- NOTE | 2020-02-14 23:21 | ECG_ITS ---
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 Measurements Intervals [place] Rate: 92 P: 0 IN: 143 QRS: 10 QRSD: 98 T: 62 QT: 349 QTc: 433 Interpretive Statements SINUS RHYTHM WITH OCCASIONAL VENTRICULAR PREMATURE COMPLEXES Compared to ECG 02/14/2020 22:15:27 Ventricular premature complex(es) now present Electronically Signed On 02-16-2020 8:25:54 CDT by Emily Yusuf M.D. [id number]
[2020-02-15] VITALS (10 sets, daily range): BP systolic 84–103; BP diastolic 55–68; PULSE 85–107; RESP 16–22; TEMP 36.4–36.7; O2SAT 94–98
[2020-02-15 00:41] LABS: Add Urine Microscopic? YES; Bilirubin Urine 1+ (NEGATIVE); Blood Urine 3+ (Negative); Glucose Urine UA Norm (Normal); Ketones Urine 1+ (Negative); Leukocyte Esterase Urine Trace (Negative); Nitrate Urine Negative (Negative); Protein Urine Neg (Negative); Urine Appearance SL Hazy (CLEAR); Urine Color Yellow (Yellow); Urobilinogen Urine 4 mg/dL (Negative); pH Urine 5 (5-7)
[2020-02-15 00:43] LABS: Add Urine Culture? Yes; Amorphous Sediment Urine 1+; Bacteria Urine 2+; Hyaline Casts Urine 0-4; Mucus Urine 1+; Squamous Epithelial Cell Urine 0-4 (0-5)
[2020-02-15 01:07] LABS: Troponin 5 2HR 36.21 ng/L (0-15); Troponin 5 2HR Delta -4.79 ABS# (0-10)
--- NOTE | 2020-02-15 01:12 | PM.HP ---
Providers/Chief Complaint Primary Care Provider: CHELSEY SAUCEDA DO Chief Complaint: FALL/ WEAKNESS History of Present Illness Hector Sanchez is a 79 year old male who presents to the emergency department with history of several falls today. For the last 2 weeks he has been eating less, drinking less. He was confused today. He has been having some urinary frequency. There have been no fevers, cough, exposure to COVID, or personal history of COVID. No history of vomiting. This limited history was obtained from the daughter, by phone. The patient is confused and cannot answer questions adequately at this time. Anti-inflammatories are noted on his home medication list. Review of Systems General: Reports: ROS unobtainable due to medical condition (Acute encephalopathy prevents patient from answering questions accurately currently) Medications/Allergies Home Medications Medication Instructions Recorded Confirmed Last Taken Type fenofibrate 160 mg PO DAILY 01/12/20 01/28/20 01/22/20 History hydrocodone-acetaminophen 1 tab PO Q6H PRN #30 tab 01/12/20 01/28/20 01/22/20 Rx lisinopril-hydrochlorothiazide 1 tab PO DAILY 01/12/20 01/28/20 01/22/20 History tizanidine 4 mg PO Q8H PRN #30 cap 01/12/20 01/28/20 01/22/20 08:00 Rx B-complex with vitamin C [Super B 1 tab PO BID 01/22/20 01/28/20 01/22/20 History Complex-Vitamin C] ascorbic acid (vitamin C) [Vitamin 1,000 mg PO BID 01/22/20 01/28/20 Unknown History C With Kimberly Hips] cyanocobalamin (vitamin B-12) 1,000 mcg PO DAILY 01/22/20 01/28/20 01/22/20 History [Vitamin B-12] [id number]-R-pretty-herbal 21 1 tab PO BEDTIME 01/22/20 01/28/20 Unknown History [Glucosamine-MSM Complex] hydrocodone-acetaminophen [[place]] 1 tab PO Q6H PRN #14 tab 01/22/20 01/28/20 Unknown Rx krill oil 500 mg PO BEDTIME 01/22/20 01/28/20 Unknown History naproxen sodium 220 mg PO BID 01/22/20 01/28/20 Unknown History Allergies Allergy/AdvReac Type Severity Reaction Status Date / Time Tetanus Vaccines and Toxoid Allergy Unknown Verified 01/28/20 15:14 PFSH Acute PFSH: Medical History (Updated 02/15/20 @ 01:22 by Bobby Walters MD) Anemia Bladder cancer Metastatic, stage IVb with liver and bone involvement Chronic kidney disease, stage II (mild) Compression fracture Diabetes Diet controlled Hyperlipidemia Hypertension Surgical History (Updated 02/15/20 @ 01:15 by Bobby Walters MD) History of cataract surgery History of prostate surgery Family History (Updated 02/15/20 @ 01:16 by Bobby Walters MD) Other CAD (coronary artery disease) Social History (Updated 02/15/20 @ 01:16 by Bobby Walters MD) Smoking and tobacco status: former smoker Alcohol intake: never Vitals/I&O/Wt Last Vital Signs Temp 97.8 F 02/14/20 21:02 Pulse 102 H 02/14/20 21:02 Resp 18 02/14/20 21:02 BP 76/37 02/14/20 21:02 Pulse Ox 92 02/14/20 21:26 Weight last 48 hrs Weight 72.575 kg Physical Exam Narrative: EXAM NARRATIVE: General exam is a white male, who is confused with a systolic blood pressure of 90 HEENT: Pupils equally round. Oropharynx is clear. Abrasion noted on forehead. Neck is supple no lymphadenopathy or thyromegaly Cardiovascular regular in rhythm without murmur, no S3 or S4 Lungs clear no wheezing or crackles Abdomen is soft nontender with positive bowel sounds. No obvious organomegaly demonstrates Dykes Extremities 2+ bilateral edema, no cyanosis or clubbing Skin no rash Neuro no obvious focal deficits. Urinary Catheter Management^: Dykes: Cath Placed During This Visit: yes Urinary Catheter Date of Insertion: 02/14/20 Urinary Catheter Time of Insertion: 23:37 Data : 02/14/20 21:15 02/14/20 21:15 Other data: Lactate 4.3 LFTs elevated with AST of 57, ALT 43, alk phos 427 CRP 315 Urinalysis 10-15 whites, 5-10 reds TSH done recently was normal Troponin baseline 41 with not significant delta. ABG pH 7.56, PCO2 18.8, PO2 [address] no acute Chest x-ray no infiltrate, port right side A&P Assessment and plan (1) Encephalopathy acute: Likely secondary to renal failure with BUN greater than 100. Continue Dykes in case bladder outlet obstruction was causing an issue Check renal ultrasound Check ammonia level Consistent with acute metabolic encephalopathy Status: Acute (2) Acute kidney injury: Check renal ultrasound Follow renal function closely Hold anti-inflammatories No renal toxic medication. Status: Acute (3) Rhabdomyolysis: Mild. Fluids, low rate secondary to potential for fluid overload Status: Acute (4) UTI (urinary tract infection): IV Rocephin Urine culture Status: Acute (5) Hyperkalemia: Repeat potassium this morning. Likely with hydration potassium level has decreased. Etiology is renal failure. If still elevated consider Kayexalate. Status: Acute (6) Transaminitis: Likely secondary to hepatic metastasis Status: Acute (7) Hypotension: Fluids as noted. Currently this is improved. Status: Acute (8) Fall: No apparent severe injuries. Status: Acute Additional A&P Information Bladder cancer with widely spread metastasis on palliative chemotherapy Hypertension, hold FADI inhibitor and hydrochlorothiazide. Diabetes, history of diet controlled Hyperlipidemia Allow natural . Discussed with family member(daughter) that he would also not want life prolonging measures of dialysis, or pressors. Heparin for DVT prophylaxis Attestations Medical Necessity Statement*: Will need greater than 2 midnight stay for evaluation and treatment of hypotension, UTI, renal failure, encephalopathy Time Spent in Patient Care: Greater than 35 minutes Coding Level of Care Code Acute Compliance Counsel for Martin Gandhi Diagnoses Encephalopathy acute G93.40 Acute kidney injury N17.9 Rhabdomyolysis M62.82 UTI (urinary tract infection) N39.0 Hyperkalemia E87.5 Transaminitis R74.0 Hypotension I95.9 Fall W19.XXXA
[2020-02-15 01:56] LABS: Creatine Phosphokinase 592 U/L (39-308)
--- NOTE | 2020-02-15 02:45 | PC.NURSE ---
400cc drained from rodriguez
--- NOTE | 2020-02-15 02:59 | USR_ITS ---
PROCEDURE INFORMATION: Exam: US Retroperitoneal; Complete; Kidneys and Bladder Exam date and time: 02/15/2020 9:29 AM Age: 79 years old Clinical indication: Abnormal findings; Abnormal lab test; Abnormal kidney function lab tests; Additional info: Renal failure TECHNIQUE: Imaging protocol: Real-time ultrasound of the retroperitoneum with image documentation. Complete exam focused on the kidneys and bladder. COMPARISON: CT Chest/Abdomen/Pelvis w IV* 09/29/2019 12:56 PM FINDINGS: Right kidney: The right kidney measures 9.8 cm in length. Normal parenchymal echogenicity. No hydronephrosis. There is a 1.6 cm simple renal cyst. Left kidney: The left kidney measures 10.6 cm in length. Normal parenchymal echogenicity. No hydronephrosis. Aorta: The visualized portion of the abdominal aorta is within normal limits. Bladder: The patient reportedly has a Dykes catheter in place. US/US renal BI with bladder IMPRESSION: No hydronephrosis. COMMENTS: Consistent with the [employer]'s Incidental Findings Committee white paper (J Am Matt Radiol 2018): Any incidental renal lesion less than 1.0 cm or classified as too small to characterize, or any incidental cystic renal lesion characterized as simple-appearing, is likely benign. No follow-up imaging is recommended for these lesions per consensus recommendations based on imaging criteria.
--- NOTE | 2020-02-15 03:02 | PC.NURSE ---
Patient arrived to floor by RN from ED. This nurse along with an RN and SMT TECHNICIAN transferred patient to regular hospital bed. Skin assessment was complete with bilateral lower leg edema. Redness and dry skin to buttocks with no open areas noted. Patient is laying comfortably in bed. Will continue to monitor.
--- NOTE | 2020-02-15 04:16 | PC.NURSE ---
Patient is refusing all treatment including lab draws, fluids, and medications. Patient states that he just wants to be left alone.
--- NOTE | 2020-02-15 04:39 | W.ED.FALL ---
HPI - Fall General: Chief Complaint: Fall Stated Complaint: FALL/ WEAKNESS Time Seen by Provider: 02/14/20 20:55 History of Present Illness: HPI Narrative: 79-year-old gentleman with a history of metastatic bladder cancer. He is on immunotherapy, and received a dose this past week. He presents after several falls at home, without really significantly injuring himself. He has been generally weak, and somewhat lethargic. He has had some mental status changes as well. No fever. History is limited, as the patient is somewhat confused. 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 Chronic kidney disease, stage II (mild) Compression fracture Diabetes Diet controlled Hyperlipidemia Hypertension Surgical History (Updated 02/15/20 @ 01:15 by Bobby Walters MD) History of cataract surgery History of prostate surgery Family History (Updated 02/15/20 @ 01:16 by Bobby Walters MD) Other CAD (coronary artery disease) Social History (Updated 02/15/20 @ 01:16 by Bobby Walters MD) Smoking and tobacco status: former smoker Alcohol intake: never Physical Exam Const: GENERAL APPEARANCE: in distress, ill appearing and frail appearing; not well hydrated ORIENTATION/CONSCIOUSNESS: Yes oriented to person and Yes oriented to place; not oriented to time HENMT: COMMON NORMALS: normocephalic, external ears normal and Normal external nose present HEAD & SCALP: normocephalic FACE & SINUS: normal facial exam NOSE: Normal external nose present and No nasal discharge present EXTERNAL EAR: Yes external ears normal Eye: COMMON NORMALS: Equal, round and reactive pupils present, EOMs intact bilaterally and conjunctivae normal EYELID: eyelids normal CONJUNCTIVA: Yes conjunctivae normal PUPIL: Yes Equal, round and reactive pupils present Neck/C-Spine: COMMON NORMALS: full ROM GENERAL: No tracheal deviation Chest: COMMONS NORMALS: normal inspection of the chest CHEST: No tenderness Resp: COMMON NORMALS: clear to auscultation bilaterally EFFORT & INSPECTION: No tachypneic, No respiratory distress, No retractions, No uses accessory muscles and No tracheal deviation AUSCULTATION: clear to auscultation bilaterally, no rhonchi, no wheezes and diminished lung sounds Cardio: COMMON NORMALS: regular rhythm RATE: tachycardic RHYTHM: regular rhythm HEART SOUNDS: no murmurs PERIPHERAL PULSES: radial pulses present GI: INSPECTION: Yes abdominal distension AUSCULTATION: No Hyperactive bowel sounds present and No Hypoactive bowel sounds present PALPATION: No Guarding due to palpation present (GI) and No Rigid due to palpation PERCUSSION: no dullness to percussion and no tympanic to percussion : COMMON NORMALS: Yes no CVA tenderness BLADDER/KIDNEY EXAM: Yes no CVA tenderness Back/Pelvis: COMMON NORMALS: no CVA tenderness Neuro: SENSORIUM/ORIENTATION: Yes oriented to person, Yes oriented to place and No oriented to time Psych: APPEARANCE: Yes unkempt SPEECH: Yes minimal and Yes slow MOOD & AFFECT: Yes Blunted affect present Course Consultations: Consultation #1: Romeo Vital Signs: Vital signs: Vital Signs Temperature 97.8 F 02/15/20 03:08 Pulse Rate 91 02/15/20 03:08 Respiratory Rate 21 H 02/15/20 03:08 Blood Pressure 98/65 02/15/20 03:08 Pulse Oximetry 97 02/15/20 03:08 MDM - Fall MDM Narrative: Medical decision making narrative: 79-year-old sick gentleman with a history of metastatic bladder cancer. He is evidently on palliative immunotherapy. He presents hypotensive, and appearing dry. His hemoglobin is 10. His BUN is 137 with a creatinine of 2.3. His potassium is slightly elevated at 5.5, but with no EKG changes associated. There is a low bicarbonate level of 18. His lactic acid is significantly elevated at 4.3. He is been given IV fluid. He needs more. Head CT is negative for any acute findings, as is his chest x-ray. He is a DNR patient. We will be treating his dehydration at this point. He will go to the floor. Lab Data: Attestation: I reviewed the patient's lab results. Labs: Lab Results 02/14/20 02/14/20 02/14/20 Range/Units 21:15 21:15 21:15 WBC 9.5 (4.0-10.0) 10^3/ uL RBC 3.77 L (4.1-5.3) 10^6/u L Hgb 9.9 L (11.7-16.6) g/dL Hct 31.6 L (42.0-52.0) % MCV 83.8 (80-94) fL MCH 26.3 L (28.0-34.0) pg MCHC 31.3 (30.0-36.0) g/dL RDW 15.1 (12.1-15.1) % Plt Count 249 (130-400) 10^3/c mm MPV 10.8 H (7.4-10.4) fL Lymph % (Auto) Not Reportable [place] % (Auto) Not Reportable Lymph # (Auto) Not Reportable [place] # (Auto) Not Reportable Total Counted 100 (0-100) Absolute Neutrophi ls 7.6 H (1.4-6.5) 10^3/c mm Segmented Neutroph ils 50 % Abs Segm Neuts (Ma n) 4.8 (1.6-7.1) 10/cmm Band Neutrophils 30.0 % Abs Band Neuts (Ma n) 2.9 H (0.0-1.2) 10^3/c mm Lymphocytes (Manua l) 8 % Monocytes (Manual) 6.0 % Absolute Monocytes 0.6 (0.1-0.6) 10^3/c mm Metamyelocytes 4.0 % Nucleated RBCs 2.0 H (0-1) /100WBC Platelet Estimate Normal (Normal) Polychromasia Trace Poikilocytosis Trace PT 14.60 (12.1-14.9) SECO NDS INR 1.11 (0.8-1.2) APTT 24.0 (23.9-36.7) SECO NDS Specimen Type Sample Site ABG pH (7.35-7.45) ABG pCO2 (35-45) mmHg ABG pO2 (80.0-100.0) mmH g ABG HCO3 (22-26) mmol/L ABG Base Excess (-2.0-2.0) mmol/ L Ben Test Hematocrit (42-52) % O2 Delivery Device Psychologist Experimental ID Sodium 133 L (136-145) mmol/L Potassium 5.5 H (3.5-5.1) mmol/L Chloride 92 L (98-107) mmol/L Carbon Dioxide 18 L (22-29) mmol/L Anion Gap 28.5 H (5-19) BUN 137 H* D (8-23) mg/dL Creatinine 2.3 H (0.7-1.2) mg/dL GFR Calculation Not Reportable Glucose 175 H (65-115) mg/dL POC Glucose (70-110) mg/dL Calculated Osmolal ity 283 L (285-295) mOsm/k g Lactate (0.5-2.2) mmol/L Calcium 8.4 L (8.5-10.5) mg/dL Total Bilirubin 1.2 (0.15-1.2) mg/dL AST 57 H (0-40) U/L ALT 43 H (0-41) U/L Alkaline Phosphata se 427 H (40-130) IU/L Creatine Kinase 545 H* (39-308) U/L Troponin T Baselin e (0-15) ng/L Troponin T 120 Min [place] (0-15) ng/L Delta Troponin T (0-10) ABS# C-Reactive Protein 315.2 H (0.0-4.9) mg/L Total Protein 5.7 L (6.6-8.7) g/dL Albumin 3.1 L (3.5-5.2) g/dL Globulin 2.6 (1.3-4.6) g/dL Urine Color (Yellow) Urine Appearance (CLEAR) Urine pH (5-7) Ur Specific Gravit y (1.005-1.030) Urine Protein (Negative) Urine Glucose (UA) (Normal) Urine Ketones (Negative) Urine Blood (Negative) Urine Nitrate (Negative) Urine Bilirubin (NEGATIVE) Urine Urobilinogen (Negative) mg/dL Ur Leukocyte Lucille ase (Negative) Urine RBC (0-2) /hpf Urine WBC (0-5) /hpf Ur Squamous Epith Cells (0-5) Amorphous Sediment Urine Bacteria (NONE) Hyaline Casts Urine Mucus 02/14/20 02/14/20 02/14/20 Range/Units 21:15 21:15 21:23 WBC (4.0-10.0) 10^3/ uL RBC (4.1-5.3) 10^6/u L Hgb (11.7-16.6) g/dL Hct (42.0-52.0) % MCV (80-94) fL MCH (28.0-34.0) pg MCHC (30.0-36.0) g/dL RDW (12.1-15.1) % Plt Count (130-400) 10^3/c mm MPV (7.4-10.4) fL Lymph % (Auto) [place] % (Auto) Lymph # (Auto) [place] # (Auto) Total Counted (0-100) Absolute Neutrophi ls (1.4-6.5) 10^3/c mm Segmented Neutroph ils % Abs Segm Neuts (Ma n) (1.6-7.1) 10/cmm Band Neutrophils % Abs Band Neuts (Ma n) (0.0-1.2) 10^3/c mm Lymphocytes (Manua l) % Monocytes (Manual) % Absolute Monocytes (0.1-0.6) 10^3/c mm Metamyelocytes % Nucleated RBCs (0-1) /100WBC Platelet Estimate (Normal) Polychromasia Poikilocytosis PT (12.1-14.9) SECO NDS INR (0.8-1.2) APTT (23.9-36.7) SECO NDS Specimen Type Sample Site ABG pH (7.35-7.45) ABG pCO2 (35-45) mmHg ABG pO2 (80.0-100.0) mmH g ABG HCO3 (22-26) mmol/L ABG Base Excess (-2.0-2.0) mmol/ L Ben Test Hematocrit (42-52) % O2 Delivery Device Psychologist Experimental ID Sodium (136-145) mmol/L Potassium (3.5-5.1) mmol/L Chloride (98-107) mmol/L Carbon Dioxide (22-29) mmol/L Anion Gap (5-19) BUN (8-23) mg/dL Creatinine (0.7-1.2) mg/dL GFR Calculation Glucose (65-115) mg/dL POC Glucose 199 (70-110) mg/dL Calculated Osmolal ity (285-295) mOsm/k g Lactate 4.3 H* (0.5-2.2) mmol/L Calcium (8.5-10.5) mg/dL Total Bilirubin (0.15-1.2) mg/dL AST (0-40) U/L ALT (0-41) U/L Alkaline Phosphata se (40-130) IU/L Creatine Kinase (39-308) U/L Troponin T Baselin e 41 H (0-15) ng/L Troponin T 120 Min [place] (0-15) ng/L Delta Troponin T (0-10) ABS# C-Reactive Protein (0.0-4.9) mg/L Total Protein (6.6-8.7) g/dL Albumin (3.5-5.2) g/dL Globulin (1.3-4.6) g/dL Urine Color (Yellow) Urine Appearance (CLEAR) Urine pH (5-7) Ur Specific Gravit y (1.005-1.030) Urine Protein (Negative) Urine Glucose (UA) (Normal) Urine Ketones (Negative) Urine Blood (Negative) Urine Nitrate (Negative) Urine Bilirubin (NEGATIVE) Urine Urobilinogen (Negative) mg/dL Ur Leukocyte Lucille ase (Negative) Urine RBC (0-2) /hpf Urine WBC (0-5) /hpf Ur Squamous Epith Cells (0-5) Amorphous Sediment Urine Bacteria (NONE) Hyaline Casts Urine Mucus 02/14/20 02/14/20 02/15/20 Range/Units 21:45 23:15 00:36 WBC (4.0-10.0) 10^3/ uL RBC (4.1-5.3) 10^6/u L Hgb (11.7-16.6) g/dL Hct (42.0-52.0) % MCV (80-94) fL MCH (28.0-34.0) pg MCHC (30.0-36.0) g/dL RDW (12.1-15.1) % Plt Count (130-400) 10^3/c mm MPV (7.4-10.4) fL Lymph % (Auto) [place] % (Auto) Lymph # (Auto) [place] # (Auto) Total Counted (0-100) Absolute Neutrophi ls (1.4-6.5) 10^3/c mm Segmented Neutroph ils % Abs Segm Neuts (Ma n) (1.6-7.1) 10/cmm Band Neutrophils % Abs Band Neuts (Ma n) (0.0-1.2) 10^3/c mm Lymphocytes (Manua l) % Monocytes (Manual) % Absolute Monocytes (0.1-0.6) 10^3/c mm Metamyelocytes % Nucleated RBCs (0-1) /100WBC Platelet Estimate (Normal) Polychromasia Poikilocytosis PT (12.1-14.9) SECO NDS INR (0.8-1.2) APTT (23.9-36.7) SECO NDS Specimen Type Arterial Sample Site Radial, right ABG pH 7.56 H (7.35-7.45) ABG pCO2 18.8 L* (35-45) mmHg ABG pO2 109.0 H (80.0-100.0) mmH g ABG HCO3 16.9 L (22-26) mmol/L ABG Base Excess -4.0 L (-2.0-2.0) mmol/ L Ben Test Pos Hematocrit 28.5 L (42-52) % O2 Delivery Device Nc Psychologist Experimental ID ellpe Sodium (136-145) mmol/L Potassium (3.5-5.1) mmol/L Chloride (98-107) mmol/L Carbon Dioxide (22-29) mmol/L Anion Gap (5-19) BUN (8-23) mg/dL Creatinine (0.7-1.2) mg/dL GFR Calculation Glucose (65-115) mg/dL POC Glucose (70-110) mg/dL Calculated Osmolal ity (285-295) mOsm/k g Lactate (0.5-2.2) mmol/L Calcium (8.5-10.5) mg/dL Total Bilirubin (0.15-1.2) mg/dL AST (0-40) U/L ALT (0-41) U/L Alkaline Phosphata se (40-130) IU/L Creatine Kinase (39-308) U/L Troponin T Baselin e (0-15) ng/L Troponin T 120 Min [place] 36.21 H (0-15) ng/L Delta Troponin T -4.79 L (0-10) ABS# C-Reactive Protein (0.0-4.9) mg/L Total Protein (6.6-8.7) g/dL Albumin (3.5-5.2) g/dL Globulin (1.3-4.6) g/dL Urine Color Yellow (Yellow) Urine Appearance Sl hazy (CLEAR) Urine pH 5 (5-7) Ur Specific Gravit y 1.010 (1.005-1.030) Urine Protein Neg (Negative) Urine Glucose (UA) Norm (Normal) Urine Ketones 1+ H (Negative) Urine Blood 3+ H (Negative) Urine Nitrate Negative (Negative) Urine Bilirubin 1+ H (NEGATIVE) Urine Urobilinogen 4 H (Negative) mg/dL Ur Leukocyte Lucille ase Trace H (Negative) Urine RBC 5-10 H (0-2) /hpf Urine WBC 10-15 H (0-5) /hpf Ur Squamous Epith Cells 0-4 H (0-5) Amorphous Sediment 1+ Urine Bacteria 2+ H (NONE) Hyaline Casts 0-4 H Urine Mucus 1+ 02/15/20 Range/Units 00:36 WBC (4.0-10.0) 10^3/ uL RBC (4.1-5.3) 10^6/u L Hgb (11.7-16.6) g/dL Hct (42.0-52.0) % MCV (80-94) fL MCH (28.0-34.0) pg MCHC (30.0-36.0) g/dL RDW (12.1-15.1) % Plt Count (130-400) 10^3/c mm MPV (7.4-10.4) fL Lymph % (Auto) [place] % (Auto) Lymph # (Auto) [place] # (Auto) Total Counted (0-100) Absolute Neutrophi ls (1.4-6.5) 10^3/c mm Segmented Neutroph ils % Abs Segm Neuts (Ma n) (1.6-7.1) 10/cmm Band Neutrophils % Abs Band Neuts (Ma n) (0.0-1.2) 10^3/c mm Lymphocytes (Manua l) % Monocytes (Manual) % Absolute Monocytes (0.1-0.6) 10^3/c mm Metamyelocytes % Nucleated RBCs (0-1) /100WBC Platelet Estimate (Normal) Polychromasia Poikilocytosis PT (12.1-14.9) SECO NDS INR (0.8-1.2) APTT (23.9-36.7) SECO NDS Specimen Type Sample Site ABG pH (7.35-7.45) ABG pCO2 (35-45) mmHg ABG pO2 (80.0-100.0) mmH g ABG HCO3 (22-26) mmol/L ABG Base Excess (-2.0-2.0) mmol/ L Ben Test Hematocrit (42-52) % O2 Delivery Device Psychologist Experimental ID Sodium (136-145) mmol/L Potassium (3.5-5.1) mmol/L Chloride (98-107) mmol/L Carbon Dioxide (22-29) mmol/L Anion Gap (5-19) BUN (8-23) mg/dL Creatinine (0.7-1.2) mg/dL GFR Calculation Glucose (65-115) mg/dL POC Glucose (70-110) mg/dL Calculated Osmolal ity (285-295) mOsm/k g Lactate (0.5-2.2) mmol/L Calcium (8.5-10.5) mg/dL Total Bilirubin (0.15-1.2) mg/dL AST (0-40) U/L ALT (0-41) U/L Alkaline Phosphata se (40-130) IU/L Creatine Kinase 592 H* (39-308) U/L Troponin T Baselin e (0-15) ng/L Troponin T 120 Min [place] (0-15) ng/L Delta Troponin T (0-10) ABS# C-Reactive Protein (0.0-4.9) mg/L Total Protein (6.6-8.7) g/dL Albumin (3.5-5.2) g/dL Globulin (1.3-4.6) g/dL Urine Color (Yellow) Urine Appearance (CLEAR) Urine pH (5-7) Ur Specific Gravit y (1.005-1.030) Urine Protein (Negative) Urine Glucose (UA) (Normal) Urine Ketones (Negative) Urine Blood (Negative) Urine Nitrate (Negative) Urine Bilirubin (NEGATIVE) Urine Urobilinogen (Negative) mg/dL Ur Leukocyte Lucille ase (Negative) Urine RBC (0-2) /hpf Urine WBC (0-5) /hpf Ur Squamous Epith Cells (0-5) Amorphous Sediment Urine Bacteria (NONE) Hyaline Casts Urine Mucus Discharge Plan Discharge Patient Disposition: Admitted As Inpatient Admit Provider: Bobby Walters Clinical Impression: Acute kidney injury, Acute dehydration Condition: Stable Interventions: ED Discharge Assessment Last Done: 02/15/20 02:56 ED Charges Last Done: 02/15/20 02:56 Discharge Date/Time: 02/15/20 02:40 Coding Level of Care Code ED Test Engine Evaluator for Chg Fwd Exam Comprehensive
[2020-02-15] MEDS: sodium chloride 0.9% 1,000 ML 75 ML IV ×2 (06:07→17:24)
[2020-02-15] MEDS: cefTRIAXone 2,000 MG in sodium chloride 0.9% (plus) 50 ML 100 MG IV (06:07)
[2020-02-15] MEDS: heparin 5,000 unit/mL INJ 1 mL 5000 UNIT SUBCUT ×2 (06:07→17:24)
--- NOTE | 2020-02-15 06:30 | PC.NURSE ---
Patients BP is 85/56. Patient is refusing all treatment including telemetry, medications, and fluids. Patient stated I just want to be left alone. Dr. Walters informed nurse that patient has a DPOA and is not allowed to refuse treatment due to current AMS. This nurse explained to the patient that since he has a UTI and is currently undergoing some confusion, his daughter is his DPOA and is making all medical decision for him at this time. Patients said that he did appoint his daughter to make decisions but doesn't understand why he is receiving medications. Patient stated I want to be left alone. This nurse explained to the patient that he will have to discuss the decisions of his treatment with his daughter.
[2020-02-15 06:56] LABS: Glucose Point of Care 133 mg/dL (70-110)
--- NOTE | 2020-02-15 13:28 | CTR_ITS ---
PROCEDURE INFORMATION: Exam: CT Abdomen And Pelvis Without Contrast Exam date and time: 02/15/2020 1:37 PM Age: 79 years old Clinical indication: Abnormal findings; Abnormal lab test; Abnormal kidney function lab tests and elevated liver enzymes; Patient HX: Minh w elev lfts TECHNIQUE: Imaging protocol: Computed tomography of the abdomen and pelvis without contrast. Radiation optimization: All CT scans at this facility use at least one of these dose optimization techniques: automated exposure control; mA and/or kV adjustment per patient size (includes targeted exams where dose is matched to clinical indication); or iterative reconstruction. COMPARISON: CT Chest/Abdomen/Pelvis w IV* 09/29/2019 12:56 PM RADIATION DOSE METRICS: Total DLP (mGy-cm): 823.95 FINDINGS: Liver: Ill-defined low-attenuation focus in the superior right lobe. This could represent a solid mass. Calcified granulomas in the liver. Gallbladder and bile ducts: No calcified gallstones, gallbladder wall thickening, or pericholecystic inflammation. No biliary ductal dilation. Pancreas: No peripancreatic inflammation. No pancreatic ductal dilation. Spleen: Calcified granulomas in a nonenlarged spleen. There is accessory splenic tissue. Adrenals: No adrenal mass. Kidneys and ureters: No hydronephrosis or nephrolithiasis. Focal parenchymal calcification in the left kidney. Stomach and bowel: No bowel obstruction. There is thickening of the colonic wall with pericolonic stranding from the cecum to the rectum suggesting a colitis. No bowel obstruction. Large amount of stool in the rectum. Mild sigmoid colon diverticulosis without diverticulitis. Appendix: The appendix has a normal caliber with no wall thickening. No periappendiceal stranding. Intraperitoneal space: No ascites or pneumoperitoneum. Vasculature: No abdominal aortic aneurysm. No iliac or common femoral artery aneurysm. Lymph nodes: No pathologically enlarged lymph nodes. Bladder: The urinary bladder is decompressed with a Dykes catheter. Reproductive: Unremarkable as visualized. Bones/joints: Multilevel disc degeneration and facet arthropathy in the lumbar spine. Grade 1 degenerative spondylolisthesis of L3 on L4, and of L4 on L5. Mild bilateral hip joint degeneration. Soft tissues: No acute soft tissue abnormality. CT/CT abdomen pelvis wo con [id number] IMPRESSION: 1. Changes suggesting colitis, in the correct clinical setting. 2. Large low-attenuation focus in the superior right lobe of the liver. A mass is not excluded. Consider liver ultrasound given the patient's renal insufficiency. Radiation Dose CTDIVOL = (mGy): DLP = 823.95 (mGy-cm)
--- NOTE | 2020-02-15 13:34 | P.PN_ITS ---
Subjective Subjective: Interval history: H&P and labs noted. On review of the records it seems patient's creatinine was within normal limits on January 11. Patient had CT abdomen pelvis chest with contrast on that day because of pain. Patient CT scan on that day was concerning for possible metast asis though no family was found. Case discussed in detail with patient's daughter Ms. Galarza. He states patient was hospice in the past but hospice was removed to try and neurological medication. She thinks immunological medications are not working anymore and would like patient to go back to hospice going forward. Vitals/I&O/Wt Last Vital Signs Temp 98 F 02/15/20 12:00 Pulse 94 02/15/20 12:00 Resp 16 02/15/20 12:00 BP 101/65 02/15/20 12:00 Pulse Ox 96 02/15/20 12:00 02/14/20 02/15/20 02/15/20 22:59 06:59 14:59 Output Total 400 / 400 Balance -400 / -400 Weight last 48 hrs Weight 79.634 kg Weight 72.575 kg Physical Exam Narrative: EXAM NARRATIVE: General exam is a white male, who is confused with a systolic blood pressure of 90 HEENT: Pupils equally round. Oropharynx is clear. Abrasion noted on forehead. Neck is supple no lymphadenopathy or thyromegaly Cardiovascular regular in rhythm without murmur, no S3 or S4 Lungs clear no wheezing or crackles Abdomen is soft nontender with positive bowel sounds. No obvious organomegaly demonstrates Dykes Extremities 2+ bilateral edema, no cyanosis or clubbing Skin no rash Neuro no obvious focal deficits. Urinary Catheter Management^: Dykes: Cath Placed During This Visit: yes Urinary Catheter Date of Insertion: 02/14/20 Urinary Catheter Time of Insertion: 23:37 Data : 02/14/20 21:15 02/15/20 14:38 A&P Assessment and plan (1) Encephalopathy acute: Status: Acute (2) Acute kidney injury: Status: Acute (3) Rhabdomyolysis: Mild. Fluids, low rate secondary to potential for fluid overload Status: Acute (4) UTI (urinary tract infection): Status: Acute (5) Hyperkalemia: Repeat potassium this morning. Likely with hydration potassium level has decreased. Etiology is renal failure. If still elevated consider Kayexalate. Status: Acute (6) Transaminitis: Likely secondary to hepatic metastasis Status: Acute (7) Hypotension: Fluids as noted. Currently this is improved. Status: Acute (8) Fall: No apparent severe injuries. Status: Acute (9) C. difficile colitis: Status: Acute Additional A&P Information Acute encephalopathy: Metabolic encephalopathy: Most likely because of acute renal failure leading to uremia. Ammonia levels within normal limits. CT head results within normal limits. Likely secondary to renal failure with BUN greater than 100. Continue Dykes in case bladder outlet obstruction was causing an issue Acute kidney/acute renal failure: Most likely chronic NSAID use along with FADI inhibitor's for hypertension. Check urine lites, urine electrolytes urine eosinophils, urine creatinine urine protein electrophoresis, complement levels. Ultrasound appreciated. Continue to check BMP every 12 for now. Start on calcium, D 15 insulin 10 units for potassium. If continues to worsen will require nephrology consult. We will continue to monitor today. Metabolic acidosis secondary to SOPHIA. Continue to monitor daily. UTI: Urinalysis concerning for UTI actually with concern for bladder cancer. Will change ceftriaxone to 1 g from 2 g daily. Follow urine culture results. For now continue with Dykes catheter for strict urine output charting given acute renal failure. Colitis: Seen on the CT abdomen pelvis. Patient having few episodes of diarrhea. Cannot rule out C. difficile. We will check stool studies. No Lomotil till C. difficile is ruled out. Hypertension: Goal blood pressure less than 140/90 mmHg. For now hold off on FADI inhibitor's. Continue to monitor blood pressures. bladder cancer with widely spread metastasis on palliative chemotherapy Diabetes, history of diet controlled. Check HbA1c. Hyperlipidemia Allow natural . Discussed with family member(daughter) that he would also not want life prolonging measures of dialysis, or pressors. Discussed with patient's daughter that they would want to go back to hospice. Care coordination has been informed. Heparin for DVT prophylaxis Attestations Medical Necessity Statement*: Acute renal failure, metabolic encephalopathy, metabolic acidosis Time Spent in Patient Care: Greater than 35 minutes (>than 50% of time spent in counselling and/or direct pt care on unit) . 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 difficile colitis A04.72
[2020-02-15] MEDS: famotidine 20 mg/2 mL INJ IVP (14:42)
[2020-02-15] MEDS: dextrose 50% syringe 50 mL IVP (14:43)
[2020-02-15] MEDS: insulin regular-human 10 UNIT in SYRINGE 1 EACH IVP (14:57)
[2020-02-15 15:05] LABS: Anion Gap 22.4 (5-19); Calcium 8.4 mg/dL (8.5-10.5); Carbon Dioxide 17 mmol/L (22-29); Chloride 102 mmol/L (98-107); Glucose 171 mg/dL (65-115); Osmolality Calculated 290 mOsm/kg (285-295); Potassium 4.4 mmol/L (3.5-5.1); Sodium 137 mmol/L (136-145)
[2020-02-15 15:08] LABS: Blood Urea Nitrogen 109 mg/dL (8-23)
[2020-02-15 15:46] LABS: Potassium, Radom Urine 59 mmol/L
[2020-02-15 16:27] LABS: Eosinophil Urine No Eosinophils Seen
[2020-02-15 16:28] LABS: Urine Eosinophil Count 0 (0-0)
[2020-02-15] MEDS: metroNIDAZOLE IV 500 MG/100 ML PREMIX 100 MG IV ×2 (16:35→23:29)
[2020-02-15 16:44] LABS: Urine Random Chloride < 10 mmol/L; Urine Random Sodium < 10 mmol/L
[2020-02-15] MEDS: HYDROcodone-acetaminophen 5-325 mg Tablet 1 TAB PO (18:29)
[2020-02-16] VITALS (10 sets, daily range): BP systolic 64–90; BP diastolic 38–58; PULSE 83–101; RESP 14–20; TEMP 35.3–36.4; O2SAT 88–96
[2020-02-16 00:15] LABS: Alanine Aminotransferase 44 U/L (0-41); Albumin Level 2.4 g/dL (3.5-5.2); Alkaline Phosphatase 321 IU/L (40-130); Aspartate Amino Transferase 58 U/L (0-40); Globulin 2.9 g/dL (1.3-4.6); Total Bilirubin 1.5 mg/dL (0.15-1.2); Total Protein 5.3 g/dL (6.6-8.7)
[2020-02-16 05:36] LABS: Basophils # 0.1 10^3/uL (0.0-0.1); Basophils % 2.1 %; Eosinophils % 0.3 %; Hemoglobin 10.7 g/dL (11.7-16.6); Lymphocytes # 0.4 10^3/uL (0.8-4.8); Lymphocytes % 11.4 %; Mean Corpuscular HGB Conc 28.9 g/dL (30.0-36.0); Mean Corpuscular Hemoglobin 26.1 pg (28.0-34.0); Mean Corpuscular Volume 90.2 fL (80-94); Mean Platelet Volume 11.2 fL (7.4-10.4); Monocytes # 0.2 10^3/uL (0.2-0.9); Monocytes % 6.1 %; Neutrophils # 2.88 10^3/uL (1.8-7.7); Neutrophils % 76.6 %; Nucleated Red Blood Cells # 0.3 /100WBC; Nucleated Red Blood Cells % 7.4 %; Platelet Count 188 10^3/cmm (130-400); Red Cell Distribution Width 16.1 % (12.1-15.1); White Blood Count 3.8 10^3/uL (4.0-10.0)
[2020-02-16] MEDS: sodium chloride 0.9% 500 ML 999 ML IV (05:46)
[2020-02-16 05:53] LABS: Alanine Aminotransferase 42 U/L (0-41); Albumin Level 1.7 g/dL (3.5-5.2); Alkaline Phosphatase 306 IU/L (40-130); Anion Gap 24.7 (5-19); Aspartate Amino Transferase 74 U/L (0-40); Calcium 8.6 mg/dL (8.5-10.5); Carbon Dioxide 14 mmol/L (22-29); Chloride 106 mmol/L (98-107); Globulin 3.3 g/dL (1.3-4.6); Glucose 187 mg/dL (65-115); Potassium 4.7 mmol/L (3.5-5.1); Sodium 140 mmol/L (136-145); Total Bilirubin 1.7 mg/dL (0.15-1.2)
[2020-02-16 05:56] LABS: Ammonia 70 umol/L (16-60)
[2020-02-16 06:08] LABS: Blood Urea Nitrogen 125 mg/dL (8-23); Osmolality Calculated 297 mOsm/kg (285-295)
[2020-02-16 06:12] LABS: Estmated Average Glucose 171; Hemoglobin A1C 7.6 % (4.0-6.0)
[2020-02-16 06:16] LABS: Creatine Phosphokinase 290 U/L (39-308)
--- NOTE | 2020-02-16 08:18 | PC.RESP ---
Patient refused treatment at this time. Instructed patient to let nurse know if he changes his mind. Patient voiced understanding.
[2020-02-16] MEDS: HYDROcodone-acetaminophen 5-325 mg Tablet 1 TAB PO (09:06)
[2020-02-16] MEDS: sodium chloride 0.9% 1,000 ML 75 ML IV (09:07)
[2020-02-16] MEDS: metroNIDAZOLE IV 500 MG/100 ML PREMIX 100 MG IV (09:17)
--- NOTE | 2020-02-16 09:40 | PC.NURSE ---
Brief changed, large loose watery stool, cleaned and repositioned with pillows to left side.
--- NOTE | 2020-02-16 09:58 | USR_ITS ---
PROCEDURE INFORMATION: Exam: US Abdomen, Limited; Right Upper Quadrant Exam date and time: 02/16/2020 12:00 PM Age: 79 years old Clinical indication: Abdominal pain; Acute; ; Additional info: Ruq pain TECHNIQUE: Imaging protocol: US abdomen. Real time ultrasound with image documentation. Limited exam focused on the right upper quadrant. COMPARISON: US renal BI with bladder 02/15/2020 9:16 AM FINDINGS: Liver: 15.6 cm liver. Gallbladder: 2.6 mm gallbladder wall. Large amount of sludge in the gallbladder. Sonographically positive Osborne's sign suggesting possible cholecystitis. Prominent pericholecystic fluid with some areas of the gallbladder wall indistinguishable from pericholecystic fluid. Some areas of gallbladder wall may be thicker than 2.6 mm. Possible cholecystitis. Common bile duct: 4.3 mm common bile duct. Pancreas: Visualized pancreas is unremarkable. Right kidney: 10.1 x 5.3 x 5.8 cm right kidney. Aorta: 2.0 cm abdominal aortic diameter. Intraperitoneal space: Amic-an-iilzffjq free fluid surrounding the liver suggesting possible ascites. US/US gall bladder [id number] IMPRESSION: 1. 2.6 mm gallbladder wall. 2. Large amount of sludge in the gallbladder. 3. Sonographically positive Osborne's sign suggesting possible cholecystitis. 4. Cwcn-tn-dgbkzgyq free fluid surrounding the liver suggesting possible ascites. 5. The history of being is incompatible with the history of 79-year-old male.
--- NOTE | 2020-02-16 10:00 | PC.NURSE ---
Dr. Thao gave new order to bolus 500mL of LR, see MAR for further details.
[2020-02-16] MEDS: lactated ringers 500 ML 999 ML IV ×3 (10:51→14:30)
[2020-02-16] MEDS: morphine 4 mg/mL SDV 1 mL 2 MG IVP (10:53)
[2020-02-16] MEDS: vancomycin 1,000 MG in sodium chloride 0.9% 250 ML 250 MG IV (11:15)
[2020-02-16] MEDS: piperacillin-tazobactam 3.375 GM in sodium chloride 0.9% (plus) 50 ML IV (13:13)
[2020-02-16] MEDS: famotidine 20 mg/2 mL INJ IVP (13:14)
--- NOTE | 2020-02-16 14:45 | PM.PN ---
Subjective Subjective: Interval history: This morning patient was examined, he he is alert oriented x2, but has episodes of confusion, is currently in septic shock, blood pressures in the 60s over 40s, heart rates in the 150s, has episodes of A. fib with RVR, currently on Flagyl and Rocephin, complaining of right upper quadrant pain, urine is dark-colored, afebrile, patient's daughters at bedside, patient's proceeding to hospice. As patient is having episodes of confusion, is septic, his daughter at bedside is his decision maker, also his nephew is at bedside. Currently patient is saying that he wants to go home, he does not want to be here anymore, he does not want interventions, keeps reiterating he wants to go home. I advised daughter my concern for septic shock secondary to bacteremia from UTI and acute cholecystitis, worsening uremia, currently DNR/DNI, family does not want aggressive interventions currently medical interventions seem futile as his condition is clinically deteriorating, given his hypotension, tachycardia, arrhythmia, alteration of mentation. I have broadened his antibiotic coverage to vancomycin and Zosyn, giving him LR boluses, holding off on ICU admission as he is comfort care, but I was honest with family that I feel that patient is suffering and that he would be best served through inpatient comfort care and currently medical interventions seem futile. After discussion risk and benefits, patient's daughter agreed to take him home today on home hospice. It would be ideal to make him inpatient comfort care, as he has a high risk of morbidity and mortality on transport, and currently while he is on the floors has a high risk of , but patient's family wants to honor his last wish to pass away at home. After discussion risk and benefits, family and daughter voiced understanding, all questions answered, agreed to transport home on home hospice. Vitals/I&O/Wt Last Vital Signs Temp 97.3 F L 02/16/20 12:00 Pulse 98 02/16/20 12:00 Resp 14 02/16/20 12:00 BP 83/58 02/16/20 12:00 Pulse Ox 88 L 02/16/20 12:00 02/15/20 02/16/20 02/16/20 22:59 06:59 14:59 Intake Total 1066.25 / 1066.25 1100 / 2166.25 200 / 200 Output Total 450 / 850 225 / 1075 Balance 616.25 / 216.25 875 / 1091.25 200 / 200 Weight last 48 hrs Weight 78.88 kg Weight 79.634 kg Weight 72.575 kg Physical Exam Const: EXAM LIMITATIONS: altered mental status GENERAL APPEARANCE: lethargic and ill appearing ORIENTATION/CONSCIOUSNESS: Yes awake, Yes oriented to person, Yes confused and Yes lethargic; not oriented to place and not oriented to time Resp: EFFORT & INSPECTION: Yes tachypneic and Yes labored AUSCULTATION: wheezes Cardio: COMMON NORMALS: S1 normal heart sound present and S2 normal heart sound present RATE: tachycardic RHYTHM: abnormal rhythm HEART SOUNDS: S1 normal heart sound present and S2 normal heart sound present GI: INSPECTION: Yes normal to inspection AUSCULTATION: Yes normoactive bowel sounds PALPATION: Yes Tenderness to palpation present (GI) Details: RUQ, No Guarding due to palpation present (GI) and No Rigid due to palpation PERCUSSION: normal to percussion Extremity: COMMON NORMALS: no clubbing, cyanosis or edema and no pedal edema Neuro: SENSORIUM/ORIENTATION: Yes oriented to person, No oriented to place, No oriented to time and Yes lethargic Urinary Catheter Management^: Dykes: Cath Placed During This Visit: yes Urinary Catheter Date of Insertion: 02/14/20 Urinary Catheter Time of Insertion: 23:37 Sepsis: Is patient septic: Yes Focused sepsis exam performed: Yes Date exam was performed: 02/16/20 Time exam was performed: 08:02 Data : 02/16/20 05:00 02/16/20 05:00 Micro: Microbiology 02/15/20 Unknown Stool Lactoferrin - Final Stool Enteric Pathogens (PCR) - Final C.difficile Toxin B Gene (PCR) - Final Occult Blood (FIT) - Final 02/14/20 23:15 Urine Culture - Preliminary Urine Catheterized A&P Assessment and plan (1) Septic shock: -Secondary to UTI, acute cholecystitis, C. difficile colitis -With underlying uremia, acute renal failure, transaminitis, hypotension, tachycardia, A. fib with RVR -Ultrasound of liver shows possible cholecystitis, large amount of sludge in gallbladder, mild to moderate fluid surrounding the liver -Urine culture so far unremarkable -Has a history of high-grade urothelial carcinoma, stageIVb, with PET CT evidence of lymph node, liver, and extensive bone involvement, has slowly deteriorated over the last 2 weeks -Currently on vancomycin, Zosyn, getting LR boluses -After discussion with family, advised and risk benefits, all questions answered, agreed to proceed to home hospice patient's, family aware that he has a high risk of sudden , high risk of morbidity and mortality here in the hospital, and on route home. But patient's family wants to honor his last wish to be at home, and to pass away at home, will do the best that we can to try to get him home. Patient's family understand the risk and benefits, voiced understanding, all questions answered, agreed to proceed. - Status: Acute (2) Encephalopathy acute: Status: Acute (3) Acute kidney injury: Status: Acute (4) Rhabdomyolysis: Status: Acute (5) UTI (urinary tract infection): Status: Acute (6) Hyperkalemia: Status: Acute (7) Transaminitis: Status: Acute (8) Hypotension: Status: Acute (9) Fall: Status: Acute (10) C. difficile colitis: Status: Acute Attestations Medical Necessity Statement*: Patient will be discharged home today for home hospice, Coding Level of Care Code Acute Guidance Secretary for [facility]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 difficile colitis A04.72 Sepsis Event Note Evaluation Current stage of sepsis: severe sepsis Reason for ruling out sepsis: septic shock Initial hypotension due to sepsis/infection: SBP drop > 40 mmHg from baseline Persistent hypotension due to sepsis/infection: SBP drop > 40 mmHg from baseline Possible source: genitourinary Focused Exam Vital Signs Temp Pulse Resp BP Pulse Ox 02/16/20 12:00 97.3 F L 98 14 83/58 88 L 02/16/20 11:52 69/48 02/16/20 10:53 18 02/16/20 08:00 95.6 F L 101 H 18 83/56 95 02/16/20 05:40 64/42 09/07/20 04:00 97.5 F L 101 H 17 77/38 95 Respiratory exam: Present decreased breath sounds and rales Cardiovascular exam: Present tachycardia and irregularly irregular Capillary refill: > 3 Seconds Peripheral pulse strength: 1+ Faint Peripheral pulse location: Pedal Skin exam: pale, pallor and diaphoretic Date exam was performed: 02/16/20 Time exam was performed: 14:55 Problem List (1) Encephalopathy acute: Status: Acute (2) Acute kidney injury: Status: Acute (3) Rhabdomyolysis: Status: Acute (4) UTI (urinary tract infection): Status: Acute (5) Hyperkalemia: Status: Acute (6) Transaminitis: Status: Acute (7) Hypotension: Status: Acute (8) Fall: Status: Acute (9) C. difficile colitis: Status: Acute (10) Septic shock: Status: Acute
--- NOTE | 2020-02-16 15:06 | P.DS_ITS ---
Discharge Providers Date of Admission: 02/15/20 01:06 Date of Discharge: February 16, 2020 Attending Provider at Admission: Bobby Walters MD Attending Provider at Discharge: James Dudley MD Primary Care Provider: CHELSEY SAUCEDA DO Diagnoses at Discharge Discharge Diagnosis (1) Septic shock: Status: Acute (2) Encephalopathy acute: Status: Acute (3) Acute kidney injury: Status: Acute (4) Rhabdomyolysis: Status: Acute (5) UTI (urinary tract infection): Status: Acute (6) Hyperkalemia: Status: Acute (7) Transaminitis: Status: Acute (8) Hypotension: Status: Acute (9) Fall: Status: Acute (10) C. difficile colitis: Status: Acute Reason for Visit Reason for Visit: FALL/ WEAKNESS Hospital Course Discharge Summary: This is a 79-year-old male with a past medical history of high-grade urothelial carcinoma, stage IVB, with PET CT evidence of lymph node, liver, extensive bone involvement, has had a slow clinical deterioration over the last few weeks, who presents to [facility] secondary to confusion Patient was admitted to [facility] for acute encephalopathy multifactorial secondary to uremia, hyperammonemia, sepsis. Patient was a DNR/DNI. Patient also had acute renal failure on admission secondary to dehydration, UTI, nephrotoxic medications. Also had metabolic acidosis secondary to acute kidney injury. Patient was admitted to the general medical floors, received IV hydration, antibiotic coverage with Flagyl and Rocephin, Dykes catheter was placed to monitor urine output. Patient was positive for C. difficile, was started on vancomycin. After discussion with family, there were plans on taking the patient on home hospice. The morning of 02/16/2020 patient continued to have episodes of confusion, hypotension, tachycardia, with worsening creatinine, uremia, transaminitis, elevated T bili, episodes with A. fib with RVR. Patient developed septic shock secondary to UTI, acute cholecystitis, and C. difficile colitis. Patient's daughter at bedside, wanted to give patient a try with IV antibiotics, and see if we could improve his sepsis so that other family members could have the opportunity to say thitori vann. However patients septic shock persisted despite broad-spectrum antibiotics, LR boluses, mentation started to decline, looked more diaphoretic, more tachypneic, having episodes of A. fib with RVR heart rates in the 150s. I advised patient's family that medical interventions are futile at this time, and that he is suffering, and that inpatient comfort care would be the best course of action as they want to proceed to hospice. However patient's family wanted to honor K's last wish, to take him home on hospice, and have him pass away at home. I advised patient's family, that currently he has a high risk of morbidity and mortality in the hospital, high risk of morbidity and mortality on transport home, they understood the risk and benefits, accepted the risks, voiced understanding, all questions answered, wanted to proceed to home hospice. Patient was discharged on home hospice, vancomycin for C. difficile colitis, ciprofloxacin and Flagyl for UTI and acute cholecystitis. Physical Exam Const: EXAM LIMITATIONS: altered mental status GENERAL APPEARANCE: lethargic and ill appearing ORIENTATION/CONSCIOUSNESS: Yes awake, Yes oriented to person, Yes confused and Yes lethargic; not oriented to place and not oriented to time Resp: EFFORT & INSPECTION: Yes tachypneic and Yes labored AUSCULTATION: wheezes Cardio: COMMON NORMALS: S1 normal heart sound present and S2 normal heart sound present RATE: tachycardic RHYTHM: abnormal rhythm HEART SOUNDS: S1 normal heart sound present and S2 normal heart sound present GI: INSPECTION: Yes normal to inspection AUSCULTATION: Yes normoactive bowel sounds PALPATION: Yes Tenderness to palpation present (GI), No Guarding due to palpation present (GI) and No Rigid due to palpation PERCUSSION: normal to percussion Extremity: COMMON NORMALS: no clubbing, cyanosis or edema and no pedal edema Neuro: SENSORIUM/ORIENTATION: Yes oriented to person, No oriented to place, No oriented to time and Yes lethargic Urinary Catheter Management^: Dykes: Cath Placed During This Visit: yes Urinary Catheter Date of Insertion: 02/14/20 Urinary Catheter Time of Insertion: 23:37 Discharge Data Data Completed and Pending: Completed Studies During Hospitalization Category Date Time Status CT abdomen pelvis wo con 51034 Rout ine Cat Scan 02/15/20 13:[address] head wo con* 7 0450 Urgent Cat Scan 02/14/20 21:19 Completed XR chest 1V casie ble [id number] Urgent Exams 02/14/20 21:19 Completed US gall bladder 7 0802 Stat Ultrasound 02/16/20 09:58 Completed US renal BI with bladder Routine Ultrasound 02/15/20 02:59 Completed Pending at discharge Category Date Time Status Clostridioides Di fficile PCR Routin e Lab 02/15/20 Results Complete Blood Co unt w/Auto AM LABS Lab 02/17/20 04:00 Ordered Complete Blood Co unt w/Auto AM LABS Lab 02/18/20 04:00 Ordered Comprehensive Met abolic Panel AM LA BS Lab 02/17/20 04:00 Ordered Enteric Bacterial Panel by PCR Rout ine Lab 02/15/20 Results Enteric Parasite Panel by PCR Routi ne Lab 02/15/20 Results Immunochemical Fe preston OCB Routine Lab 02/15/20 Results Lactoferrin Routi ne Lab 02/15/20 Results Urine Culture Sta t Lab 02/14/20 23:15 Results Urine Protein Leda ctrop Random Routi ne Lab 02/15/20 15:14 Received Labs from last 24 hours 02/16/20 02/16/20 02/16/20 05:00 05:00 05:00 WBC RBC Hgb Hct MCV MCH MCHC RDW Plt Count MPV Neut % (Auto) Lymph % (Auto) [place] % (Auto) Eos % (Auto) Baso % (Auto) Neut # (Auto) Lymph # (Auto) [place] # (Auto) Eos # (Auto) Baso # (Auto) Nucleated RBC % (a uto) Nucleated RBCs # Sodium 140 Potassium 4.7 Chloride 106 Carbon Dioxide 14 L Anion Gap 24.7 H BUN 125 H* Creatinine 1.9 H GFR Calculation Not Reportable Glucose 187 H Estimat Average Gl ucose 171 Hemoglobin A1c 7.6 H Calculated Osmolal ity 297 H Calcium 8.6 Total Bilirubin 1.7 H Direct Bilirubin AST 74 H ALT 42 H Alkaline Phosphata se 306 H Ammonia Creatine Kinase 290 Total Protein 5.0 L Albumin 1.7 L Globulin 3.3 Ur Eosinophil Smea r Urine Eosinophils Ur Random Creatini ne Ur Random Albumin U Random Total Pro tein Ur Random Sodium Ur Random Potassiu m Ur Random Chloride Protein/Creatinin Ratio Protein/Creat Rati o 24h U Random a-1-Globu lay % U Random a-2-Globu lay % U Random Beta Glob ulin U Random Gamma Carrie b U Abnormal Prot Ba nd 1 U Abnormal Prot Ba nd 2 U Abnormal Prot Ba nd 3 Urine PEP Interpre t 02/16/20 02/16/20 02/15/20 05:00 05:00 15:14 WBC 3.8 L RBC 4.10 Hgb 10.7 L Hct 37.0 L MCV 90.2 MCH 26.1 L MCHC 28.9 L RDW 16.1 H Plt Count 188 MPV 11.2 H Neut % (Auto) 76.6 Lymph % (Auto) 11.4 Put[place] % (Auto) 6.1 Eos % (Auto) 0.3 Baso % (Auto) 2.1 Neut # (Auto) 2.88 Lymph # (Auto) 0.4 L [place] # (Auto) 0.2 Eos # (Auto) 0.0 Baso # (Auto) 0.1 Nucleated RBC % (a uto) 7.4 Nucleated RBCs # 0.3 Sodium Potassium Chloride Carbon Dioxide Anion Gap BUN Creatinine GFR Calculation Glucose Estimat Average Gl ucose Hemoglobin A1c Calculated Osmolal ity Calcium Total Bilirubin Direct Bilirubin AST ALT Alkaline Phosphata se Ammonia 70 H Creatine Kinase Total Protein Albumin Globulin Ur Eosinophil Smea r Urine Eosinophils Ur Random Creatini ne Pending Ur Random Albumin Pending U Random Total Pro tein Pending Ur Random Sodium Ur Random Potassiu m Ur Random Chloride Protein/Creatinin Ratio Pending Protein/Creat Rati o 24h Pending U Random a-1-Globu lay % Pending U Random a-2-Globu lay % Pending U Random Beta Glob ulin Pending U Random Gamma Carrie b Pending U Abnormal Prot Ba nd 1 Pending U Abnormal Prot Ba nd 2 Pending U Abnormal Prot Ba nd 3 Pending Urine PEP Interpre t Pending 02/15/20 02/15/20 02/15/20 15:14 15:14 14:38 WBC RBC Hgb Hct MCV MCH MCHC RDW Plt Count MPV Neut % (Auto) Lymph % (Auto) [place] % (Auto) Eos % (Auto) Baso % (Auto) Neut # (Auto) Lymph # (Auto) [place] # (Auto) Eos # (Auto) Baso # (Auto) Nucleated RBC % (a uto) Nucleated RBCs # Sodium Potassium Chloride Carbon Dioxide Anion Gap BUN Creatinine GFR Calculation Glucose Estimat Average Gl ucose Hemoglobin A1c Calculated Osmolal ity Calcium Total Bilirubin 1.5 H Direct Bilirubin 1.20 H AST 58 H ALT 44 H Alkaline Phosphata se 321 H Ammonia Creatine Kinase Total Protein 5.3 L Albumin 2.4 L Globulin 2.9 Ur Eosinophil Smea r 0 Urine Eosinophils No eosinophils se en Ur Random Creatini ne Ur Random Albumin U Random Total Pro tein Ur Random Sodium < 10 Ur Random Potassiu m 59 Ur Random Chloride < 10 Protein/Creatinin Ratio Protein/Creat Rati o 24h U Random a-1-Globu lay % U Random a-2-Globu lay % U Random Beta Glob ulin U Random Gamma Carrie b U Abnormal Prot Ba nd 1 U Abnormal Prot Ba nd 2 U Abnormal Prot Ba nd 3 Urine PEP Interpre t 02/15/20 02/15/20 14:38 14:38 WBC RBC Hgb Hct MCV MCH MCHC RDW Plt Count MPV Neut % (Auto) Lymph % (Auto) [place] % (Auto) Eos % (Auto) Baso % (Auto) Neut # (Auto) Lymph # (Auto) [place] # (Auto) Eos # (Auto) Baso # (Auto) Nucleated RBC % (a uto) Nucleated RBCs # Sodium Cancelled Potassium Cancelled Chloride Cancelled Carbon Dioxide 17 L Cancelled Anion Gap 22.4 H Cancelled BUN 109 H* Cancelled Creatinine 1.5 H Cancelled GFR Calculation Cancelled Glucose 171 H Cancelled Estimat Average Gl ucose Hemoglobin A1c Calculated Osmolal ity Cancelled Calcium 8.4 L Cancelled Total Bilirubin Cancelled Direct Bilirubin AST Cancelled ALT Cancelled Alkaline Phosphata se Cancelled Ammonia Creatine Kinase Total Protein Cancelled Albumin Cancelled Globulin Cancelled Ur Eosinophil Smea r Urine Eosinophils Ur Random Creatini ne Ur Random Albumin U Random Total Pro tein Ur Random Sodium Ur Random Potassiu m Ur Random Chloride Protein/Creatinin Ratio Protein/Creat Rati o 24h U Random a-1-Globu lay % U Random a-2-Globu lay % U Random Beta Glob ulin U Random Gamma Carrie b U Abnormal Prot Ba nd 1 U Abnormal Prot Ba nd 2 U Abnormal Prot Ba nd 3 Urine PEP Interpre t Vitals: Last Vital Signs Temp 97.3 F L 02/16/20 14:56 Pulse 98 02/16/20 14:56 Resp 14 02/16/20 14:56 BP 83/58 02/16/20 14:56 Pulse Ox 88 L 02/16/20 14:56 Discharge Plan Discharge Patient Disposition: Hospice - Home Condition: Critical Prescriptions: New vancomycin 125 mg capsule 125 mg PO Q6H 10 Days Qty: 40 RF: 0 ciprofloxacin HCl 500 mg tablet 500 mg PO Q12H 14 Days Qty: 28 RF: 0 Flagyl 500 mg tablet 500 mg PO Q8H 14 Days Qty: 42 RF: 0 Ativan 2 mg/mL solution See Rx Instructions .ROUTE .COMPLEX PRN (Reason: pain) Qty: 25 RF: 0 morphine 10 mg/5 mL solution See Rx Instructions .ROUTE .COMPLEX PRN (Reason: pain) Qty: 50 RF: 0 hyoscyamine sulfate 0.125 mg/mL drops 1 ml PO Q4H PRN (Reason: secretions) Qty: 15 RF: 0 Discontinued fenofibrate 160 mg Tablet 160 mg PO DAILY RF: 0 hydrocodone-acetaminophen 5-325 mg tablet 1 tab PO Q6H PRN (Reason: pain) Qty: 30 RF: 0 cyanocobalamin (vitamin B-12) [Vitamin B-12] 1,000 mcg Tablet 1,000 mcg PO DAILY RF: 0 B-complex with vitamin C [Super B Complex-Vitamin C] Tablet 1 tab PO BID RF: 0 ascorbic acid (vitamin C) [Vitamin C With Kimberly Hips] 1,000 mg Tablet 1,000 mg PO BID RF: 0 morphine [MS Contin] 15 mg Tablet Extended Release 15 mg PO Q12H RF: 0 dexamethasone 4 mg tablet RF: 0 Discharge Orders: Discharge Order (Routine); Ordered 02/16/20 Ordered By: Tyrone Thao Referrals: [facility] [Outside] Patient Instructions: Lorazepam (By mouth), Morphine, Slow Release (By mouth) Discharge Attestations Time Spent in Discharge Care*: less than 30 min Quality Metrics Clinical Quality Measures During this hospital stay, did patient experience: None Coding Level of Care Code 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 difficile colitis A04.72
--- NOTE | 2020-02-16 15:30 | PC.NURSE ---
Patient discharged home via EMS, instructions given to patients daughter.
[2020-02-17 12:03] LABS: Creatinine, Random Urine 77 mg/dL (20-320); Protein, Total, Random 36 mg/dL (5-25); Protein/Creatinine Ratio 0.468 (0.022-0.128); Protein/Creatinine Ratio 468 mg/g creat (22-128)
[2020-02-18 09:36] LABS: Albumin,Urine Random 100 %; Alpha-1-Globulins Urine Random 0 %; Alpha-2-Globulins Urine Random 0 %; Beta-Globulin,Urine Random 0 %; Gamma Globulin,Urine Random 0 %
== END 2020-02-16 15:30 | disposition hospice, home (50) | DRG 871 ==
LOC: ER 21:17 → MEDSURG 02-15 01:37
PROVIDERS: Admitting Provider Internal Medicine; Emergency Provider Emergency Medicine; PCP Internal Medicine; Visit Provider Student in an Organized Health Care Education/Training Program
DX: A41.9 Sepsis, unspecified organism (principal); R65.21 Severe sepsis with septic shock; G93.41 Metabolic encephalopathy; C78.7 Secondary malignant neoplasm of liver and intrahepatic bile duct; C79.51 Secondary malignant neoplasm of bone; N17.9 Acute kidney failure, unspecified; M62.82 Rhabdomyolysis; N39.0 Urinary tract infection, site not specified; A04.72 Enterocolitis due to Clostridium difficile, not specified as recurrent; E87.2 Acidosis; D63.1 Anemia in chronic kidney disease; C67.9 Malignant neoplasm of bladder, unspecified; E11.22 Type 2 diabetes mellitus with diabetic chronic kidney disease; I12.9 Hypertensive chronic kidney disease with stage 1 through stage 4 chronic kidney disease, or unspecified chronic kidney disease; N18.2 Chronic kidney disease, stage 2 (mild); E78.5 Hyperlipidemia, unspecified; Z87.891 Personal history of nicotine dependence; E87.5 Hyperkalemia; I95.9 Hypotension, unspecified; W19.XXXA Unspecified fall, initial encounter; Z79.899 Other long term (current) drug therapy; Z66 Do not resuscitate; Z79.891 Long term (current) use of opiate analgesic; K81.9 Cholecystitis, unspecified; I48.91 Unspecified atrial fibrillation; Z79.1 Long term (current) use of non-steroidal anti-inflammatories (NSAID)
CPT/HCPCS: 12345; 36415; 36416; 36600; 51702; 70450; 71045; 74176; 76705; 76770; 76857; 80048; 80053; 80076; 81001; 82140; 82274; 82436; 82550; 82803; 82962; 83036; 83605; 83630; 84133; 84300; 84484; 85007; 85025; 85610; 85730; 85999; 86140; 87086; 87493; 87506; 93005; 94640; 96360; 96372; 96375; 99283; J0610; J0696; J1644; J1815; J2270; J2543; J3370; J3490; J7030; J7040; J7050; S0030